=== PATIENT | male | born 1955 | race Caucasian/White ===

== ENCOUNTER 2017-11-07 09:02 | Day surgery (SDC) | payer OTHER ==
[~2017-11-07 09:02] MED LIST: (None)20 M1 PO; ALBU90OI6 INH; AMIT25 PO; ASPI325 PO; ATOR20 PO; CEPH500 PO; CYCL10 PO; DILTIAZEM ER240 MG PO; DOCU100 PO; DOXY100 PO; DULO60 PO; ENOX100I SC; GUAI600T33 PO; HYDACE5 PO; HYDCHL25 PO; HYDR1TAB94 PO; METO50 PO; NAPR500 PO; NICO14TP TOP; NICO7 TOP; NITR100CA PO; RANI150 PO; RIBAVIRIN 200 MG PO; RXTRAM50 PO; SULTRIDS PO; TAMS.4ER PO; TIOT18 IH; TIOT18 INH; TRAM50 PO; VARE1 PO; WARF5 PO; [UNRECOGNIZED DRUG - OTHER]; [UNRECOGNIZED DRUG - OTHER]
[2017-11-07 10:41] LABS: International Normalized Ratio 0.99; Prothrombin Time Results 10.3 Sec (9.7-11.5)
== END 2017-11-07 23:21 | disposition home or self-care (01) ==
LOC: CT 09:02
PROVIDERS: Internal Medicine Critical Care Medicine
PROC: 0PB43ZX Excision of Thoracic Vertebra, Percutaneous Approach, Diagnostic (ICD-10-PCS; principal; 2017-11-07 13:00)
DX: C79.51 Secondary malignant neoplasm of bone (principal); J44.9 Chronic obstructive pulmonary disease, unspecified; Z79.01 Long term (current) use of anticoagulants
CPT/HCPCS: 20225; 36415; 77012; 85610; 88307; 88311; 88341; 88342

== ENCOUNTER 2018-01-06 08:08 | Day surgery (SDC) | payer OTHER ==
[~2018-01-06] VITALS: Ht 185.4 cm; Wt 86.6 kg
[2018-01-06] MEDS ORDERED: WARF7.5 PO (08:50)
[2018-01-06] MEDS ORDERED: TRAM50 PO (08:51)
[2018-01-06] MEDS ORDERED: ESCI10 PO (08:52)
[2018-01-06] MEDS ORDERED: BREO ELLIPTA 11 EACH (08:53)
[2018-01-06 10:37] LABS: International Normalized Ratio 0.99; Prothrombin Time Results 10.2 Sec (9.7-11.5)
== END 2018-01-06 22:41 | disposition home or self-care (01) ==
LOC: ORSCMMR 08:08 → ORD 09:45 → ORSCMMR 09:45
PROVIDERS: Surgery
PROC: 0JH60WZ Insertion of Totally Implantable Vascular Access Device into Chest Subcutaneous Tissue and Fascia, Open Approach (ICD-10-PCS; principal; 2018-01-06 09:45)
DX: C34.12 Malignant neoplasm of upper lobe, left bronchus or lung (principal); C79.51 Secondary malignant neoplasm of bone; J44.9 Chronic obstructive pulmonary disease, unspecified; G47.33 Obstructive sleep apnea (adult) (pediatric); I48.0 Paroxysmal atrial fibrillation; I10 Essential (primary) hypertension; E78.5 Hyperlipidemia, unspecified; F60.2 Antisocial personality disorder; F43.10 Post-traumatic stress disorder, unspecified; F41.9 Anxiety disorder, unspecified; F17.210 Nicotine dependence, cigarettes, uncomplicated; Z79.01 Long term (current) use of anticoagulants; Z79.899 Other long term (current) drug therapy
CPT/HCPCS: 36415; 77001; 85610; C1788; J0690; J1100; J1642; J2250; J2370; J2405; J7120

== ENCOUNTER 2018-02-20 00:19 | Day surgery (SDC) | payer OTHER ==
[~2018-02-20 00:19] MED LIST changes: +ALBU2.5V5 NEB; +ALBU90OI61 INH; +BREO ELLIPTA 11 EACH; +ESCI10 PO; +Flonase 0.05% N16 GM; +LOPE2C; +MULTI VITAMIN1 EACH PO; +PROM25 PO; +WARF7.5 PO
[2018-02-20 10:00] LABS: BASOPHILS ABSOLUTE AUTO 0.02 K/mm3 (0.00-0.23); BASOPHILS PERCENT AUTO 1 % (0-2); EOSINOPHILS ABSOLUTE AUTO 0.02 K/mm3 (0.00-0.68); EOSINOPHILS PERCENT AUTO 1 % (0-6); Hematocrit 34.9 % (37.0-53.0); Hemoglobin 11.9 g/dL (13.5-17.5); IMMATURE GRAN ABSOLUTE AUTO 0.03 K/mm3 (0.00-0.10); IMMATURE GRAN PERCENT AUTO 1 % (0-1); LYMPHOCYTES ABSOLUTE AUTO 0.55 K/mm3 (0.84-5.20); LYMPHOCYTES PERCENT AUTO 24 % (21-46); MONOCYTES PERCENT AUTO 13 % (4-13); Mean Corpuscular HGB 32.5 pg (26.0-34.0); Mean Corpuscular HGB Conc 34.1 g/dL (31.5-36.5); Mean Corpuscular Volume 95 fL (80-100); NEUTROPHILS ABSOLUTE AUTO 1.39 K/mm3 (1.96-9.15); NEUTROPHILS PERCENT AUTO 60 % (41-73); NRBC ABSOLUTE 0.02 K/mm3 (0.00-0.02); NRBC Auto 0.9 /100 WBC (0.0-0.2); Platelet Count 195 K/mm3 (150-400); RDW Coefficient Variation 14.6 % (11.7-14.2); RDW Standard Deviation 49.8 fL (35.1-46.3); Red Blood Cell Count 3.66 M/mm3 (4.30-5.90); White Blood Cell Count 2.31 K/mm3 (4.00-11.30)
[2018-02-20 10:11] LABS: International Normalized Ratio 1.32; Prothrombin Time Results 13.4 Sec (9.7-11.5)
[2018-02-20 10:21] LABS: Alanine Aminotransfer (ALT/SGP 40 U/L (12-78); Albumin/Globulin Ratio 0.7 (0.8-1.8); Alk Phos 117 U/L (50-136); Anion Gap 10 mmol/L (6-16); Aspartate Aminotrans (AST/SGOT 20 U/L (12-37); Bilirubin, Total 0.6 mg/dL (0.1-1.0); Blood Urea Nitrogen 15 mg/dL (8-24); Bun/Creatinine Ratio 20.2 (12.0-20.0); CO2, Blood 25 mmol/L (21-32); Calcium, Blood 8.5 mg/dL (8.5-10.1); Chloride, Blood 104 mmol/L (98-108); Creatinine, Blood 0.74 mg/dL (0.60-1.20); Globulin, Blood 4.4 g/dL (2.2-4.0); Glomerular Filtration Rate >60 (60-); Glucose, Blood 115 mg/dL (70-99); Potassium, Blood 3.7 mmol/L (3.5-5.5); Sodium, Blood 139 mmol/L (136-145); Total Protein, Blood 7.4 g/dL (6.4-8.2)
== END 2018-02-20 09:50 | disposition home or self-care (01) ==
LOC: ATC 00:19
PROVIDERS: Internal Medicine Hematology & Oncology
DX: C34.12 Malignant neoplasm of upper lobe, left bronchus or lung (principal); C79.51 Secondary malignant neoplasm of bone; G47.30 Sleep apnea, unspecified; F17.210 Nicotine dependence, cigarettes, uncomplicated; I10 Essential (primary) hypertension
CPT/HCPCS: 36591; 80053; 85025; 85610; J1642

== ENCOUNTER 2018-03-03 13:54 | Day surgery (SDC) | payer OTHER ==
[2018-03-03 14:37] LABS: Hematocrit 32.1 % (37.0-53.0); Hemoglobin 11.4 g/dL (13.5-17.5); Mean Corpuscular HGB 33.9 pg (26.0-34.0); Mean Corpuscular HGB Conc 35.5 g/dL (31.5-36.5); Mean Corpuscular Volume 96 fL (80-100); Mean Platelet Volume 10.6 fL (9.1-12.4); Platelet Count 191 K/mm3 (150-400); RDW Coefficient Variation 16.4 % (11.7-14.2); RDW Standard Deviation 52.9 fL (35.1-46.3); Red Blood Cell Count 3.36 M/mm3 (4.30-5.90); White Blood Cell Count 2.02 K/mm3 (4.00-11.30)
[2018-03-03 15:09] LABS: BAND PERCENT MAN 2 % (0-8); BASOPHILS ABSOLUTE MAN 0.02 K/mm3 (0.00-0.23); BASOPHILS PERCENT MAN 1 % (0-2); EOSINOPHILS PERCENT MAN 0 % (0-6); LYMPHOCYTES ABSOLUTE MAN 0.42 K/mm3 (0.84-5.20); LYMPHOCYTES PERCENT MAN 21 % (21-46); METAMYELOCYTE ABSOLUTE MAN 0.06 K/mm3 (0.00-0.00); METAMYELOCYTE PERCENT MAN 3 % (0-0); MONOCYTES ABSOLUTE MAN 0.08 K/mm3 (0.16-1.47); MONOCYTES PERCENT MAN 4 % (4-13); MYELOCYTE ABSOLUTE MAN 0.14 K/mm3 (0.00-0.00); MYELOCYTE PERCENT MAN 7 % (0-0); NEUTROPHILS ABSOLUTE MAN 1.27 K/mm3 (1.96-9.15); PLASMA CELL ABSOLUTE MAN 0.02 K/mm3 (0.00-0.00); PLASMA CELLS PERCENT MAN 1 % (0-0); SEG NEUTROPHILS PERCENT MAN 61 % (41-73); TOTAL CELLS COUNTED 100
== END 2018-03-03 14:13 | disposition home or self-care (01) ==
LOC: ATC 13:54
PROVIDERS: Internal Medicine Hematology & Oncology
DX: D70.1 Agranulocytosis secondary to cancer chemotherapy (principal); T45.1X5A Adverse effect of antineoplastic and immunosuppressive drugs, initial encounter; E87.6 Hypokalemia; C34.02 Malignant neoplasm of left main bronchus; C79.51 Secondary malignant neoplasm of bone
CPT/HCPCS: 36591; 85025; J1642

== ENCOUNTER 2018-03-19 08:02 | Day surgery (SDC) | payer OTHER ==
[2018-03-19 09:15] LABS: BASOPHILS ABSOLUTE AUTO 0.03 K/mm3 (0.00-0.23); BASOPHILS PERCENT AUTO 1 % (0-2); EOSINOPHILS ABSOLUTE AUTO 0.09 K/mm3 (0.00-0.68); EOSINOPHILS PERCENT AUTO 2 % (0-6); Hematocrit 27.4 % (37.0-53.0); IMMATURE GRAN ABSOLUTE AUTO 0.02 K/mm3 (0.00-0.10); IMMATURE GRAN PERCENT AUTO 0 % (0-1); LYMPHOCYTES ABSOLUTE AUTO 0.92 K/mm3 (0.84-5.20); LYMPHOCYTES PERCENT AUTO 17 % (21-46); MONOCYTES ABSOLUTE AUTO 0.88 K/mm3 (0.16-1.47); MONOCYTES PERCENT AUTO 16 % (4-13); Mean Corpuscular HGB 33.2 pg (26.0-34.0); Mean Corpuscular HGB Conc 32.8 g/dL (31.5-36.5); Mean Corpuscular Volume 101 fL (80-100); Mean Platelet Volume 9.8 fL (9.1-12.4); NEUTROPHILS ABSOLUTE AUTO 3.59 K/mm3 (1.96-9.15); NEUTROPHILS PERCENT AUTO 65 % (41-73); Platelet Count 219 K/mm3 (150-400); RDW Standard Deviation 70.6 fL (35.1-46.3); Red Blood Cell Count 2.71 M/mm3 (4.30-5.90); White Blood Cell Count 5.53 K/mm3 (4.00-11.30)
[2018-03-19 09:38] LABS: Alanine Aminotransfer (ALT/SGP 18 U/L (12-78); Albumin, Blood 2.5 g/dL (3.4-5.0); Albumin/Globulin Ratio 0.5 (0.8-1.8); Alk Phos 102 U/L (50-136); Anion Gap 10 mmol/L (6-16); Aspartate Aminotrans (AST/SGOT 17 U/L (12-37); Bilirubin, Total 0.4 mg/dL (0.1-1.0); Blood Urea Nitrogen 11 mg/dL (8-24); Bun/Creatinine Ratio 15.4 (12.0-20.0); CO2, Blood 25 mmol/L (21-32); Calcium, Blood 8.2 mg/dL (8.5-10.1); Chloride, Blood 109 mmol/L (98-108); Creatinine, Blood 0.71 mg/dL (0.60-1.20); Globulin, Blood 4.7 g/dL (2.2-4.0); Glomerular Filtration Rate >60 (60-); Glucose, Blood 98 mg/dL (70-99); Potassium, Blood 3.5 mmol/L (3.5-5.5); Sodium, Blood 144 mmol/L (136-145); Total Protein, Blood 7.2 g/dL (6.4-8.2)
[2018-03-19 11:54] LABS: Percent Saturation 29.4 % (20.0-50.0)
== END 2018-03-19 09:05 | disposition home or self-care (01) ==
LOC: ATC 08:02
PROVIDERS: Internal Medicine Hematology & Oncology
DX: D70.1 Agranulocytosis secondary to cancer chemotherapy (principal); C34.12 Malignant neoplasm of upper lobe, left bronchus or lung; E87.6 Hypokalemia; C79.51 Secondary malignant neoplasm of bone; F17.210 Nicotine dependence, cigarettes, uncomplicated
CPT/HCPCS: 36591; 80053; 82728; 83540; 83550; 85025; J1642

== ENCOUNTER 2018-07-02 11:31 | Inpatient (IN) | payer OTHER ==
[~2018-07-02] VITALS: Ht 182.9 cm; Wt 75.6 kg
[2018-07-02 11:56] LABS: PCO2 Arterial 28.2 mmHg (35-45); PO2 Arterial 75.1 mmHg (80-100); pH Blood Arterial 7.49 (7.35-7.45)
[2018-07-02 12:21] LABS: BASOPHILS ABSOLUTE AUTO 0.04 K/mm3 (0.00-0.23); BASOPHILS PERCENT AUTO 1 % (0-2); EOSINOPHILS ABSOLUTE AUTO 0.27 K/mm3 (0.00-0.68); EOSINOPHILS PERCENT AUTO 4 % (0-6); Hematocrit 41.3 % (37.0-53.0); Hemoglobin 13.3 g/dL (13.5-17.5); IMMATURE GRAN ABSOLUTE AUTO 0.02 K/mm3 (0.00-0.10); IMMATURE GRAN PERCENT AUTO 0 % (0-1); LYMPHOCYTES PERCENT AUTO 12 % (21-46); MONOCYTES ABSOLUTE AUTO 0.95 K/mm3 (0.16-1.47); MONOCYTES PERCENT AUTO 13 % (4-13); Mean Corpuscular HGB 31.2 pg (26.0-34.0); Mean Corpuscular HGB Conc 32.2 g/dL (31.5-36.5); Mean Corpuscular Volume 97 fL (80-100); Mean Platelet Volume 9.6 fL (9.1-12.4); NEUTROPHILS ABSOLUTE AUTO 5.05 K/mm3 (1.96-9.15); NEUTROPHILS PERCENT AUTO 70 % (41-73); Platelet Count 322 K/mm3 (150-400); RDW Coefficient Variation 15.3 % (11.7-14.2); Red Blood Cell Count 4.26 M/mm3 (4.30-5.90); White Blood Cell Count 7.23 K/mm3 (4.00-11.30)
[2018-07-02 12:43] LABS: International Normalized Ratio 1.01; Prothrombin Time Results 10.4 Sec (9.7-11.5)
[2018-07-02 12:45] LABS: Alanine Aminotransfer (ALT/SGP 24 U/L (12-78); Albumin, Blood 2.9 g/dL (3.4-5.0); Albumin/Globulin Ratio 0.7 (0.8-1.8); Alk Phos 125 U/L (50-136); Anion Gap 9 mmol/L (6-16); Aspartate Aminotrans (AST/SGOT 15 U/L (12-37); Bilirubin, Total 0.5 mg/dL (0.1-1.0); Blood Urea Nitrogen 17 mg/dL (8-24); Bun/Creatinine Ratio 27.2 (12.0-20.0); CO2, Blood 25 mmol/L (21-32); Calcium, Blood 8.6 mg/dL (8.5-10.1); Chloride, Blood 107 mmol/L (98-108); Creatinine, Blood 0.62 mg/dL (0.60-1.20); Globulin, Blood 4.2 g/dL (2.2-4.0); Glomerular Filtration Rate >60 (60-); Glucose, Blood 92 mg/dL (70-99); Potassium, Blood 3.9 mmol/L (3.5-5.5); Sodium, Blood 141 mmol/L (136-145); Total Protein, Blood 7.1 g/dL (6.4-8.2)
[2018-07-02] MEDS ORDERED: XARELTO20 MG PO (16:15)
--- NOTE | 2018-07-02 18:34 | NUR ---
SHIFT SUMMARY 1500 PT RECEIVED FROM ER. ALERT AND ORIENTED BUT SLOW TO RESPOND. DENIES PAIN AT THIS TIME. LUNG SOUNDS COARSE THROUGHOUT, LEFT BASE INSPIRATORY WHEEZES. AFIB ON TELE RATE 90-110s. FACIAL BURN TO LEFT SIDE OF FACE, SIGNIFICANT SWELLING AND SINGED HAIRS TO LEFT LIP AND HAIRS ALONG WITH ORAL SWELLING, SOME BLISTERING ON LEFT SIDE OF LIPS. MEDIPORT ACCESSED IN ER. WILL CONTINUE TO MONITOR.
--- NOTE | 2018-07-03 04:42 | NUR ---
END OF SHIFT SUMMARY: PATIENT SLEPT MAJORITY OF SHIFT, WOKE EASILY WITH VERBAL CUES. VSS, CALL LIGHT WITHIN REACH, BED LOW AND LOCKED
--- NOTE | 2018-07-03 18:41 | NUR ---
END OF SHIFT PT HAS HAD NO CHANGES TO THE ASSESSMENT, PT HAS HAD NO PAIN THROUGHOUT THE SHIFT, VSS, PT SLEPT THROUGHOUT THE SHIFT
--- NOTE | 2018-07-04 03:10 | NUR ---
END OF SHIFT SUMMARY: PATIENT VSS, NO CHANGES, USING CALL LIGHT APPROPRIATLY, BED LOW AND LOCKED, MONITORING CLOSELY.
--- NOTE | 2018-07-04 16:51 | NUR ---
PT ARRIVED TO ROOM 227 VIA W/C. RESP E/U, LUNGS DIM/COARSE T/O. PT DENIES PAIN. VSS. 2LO2 NC PLACED PER PT BASELINE. PT ORIENTED TO ROOM. CALL LIGHT IN REACH, WILL CONT TO MONITOR.
--- NOTE | 2018-07-04 19:15 | NUR ---
PT HAS HAD NO ACUTE CHANGES SINCE ARRIVING TO FLOOR; VSS. PT DENIED SOB. PT REP PAIN LINDA, DENIED NEED FOR PAIN MEDS. PT RESTING QUIETLY IN BED, IS USING CALL LIGHT FOR ASSISTANCE, REP GIVEN TO JM WEBB.
--- NOTE | 2018-07-05 07:23 | NUR ---
burn, 2L via nc, call light in reach, successfully medicated for pain, mediport accessed with low volumn saline, 2L via nc, sbar report provided to day shift nurse
--- NOTE | 2018-07-05 15:40 | NUR ---
SHIFT SUMMARY PT HAS HAD NO ACUTE CHANGES THIS SHIFT, MEDICATED 1X FOR PAIN, NO OTHER COMPLAINTS OF ANY KIND. PT HAS SLEPT T/O MOST OF SHIFT AND APPEARS TO BE SLEEPING AT THIS TIME, WILL CONT TO MONITOR UNTIL REPORT GIVEN TO JM WEBB.
--- NOTE | 2018-07-05 16:10 | NUR ---
assumed care of pt, pt sleeping in bed, bed in lowest position, bed rails up x 2, call light within reach
--- NOTE | 2018-07-06 08:27 | NUR ---
SUMMARY PT WITH HX OF LALY ALTHOUGH DENIES CPAP USE AND NOT ON O2 AT THIS TIME. DENIES NEED.
--- NOTE | 2018-07-06 16:10 | NUR ---
PTS BP LOW THIS EVENING AROUND 1500. DR OAKES CALLED. 1 500 ML BAG GIVEN. BP DID NOT INCREASE MUCH. DR ORDERED ANOTHER 500ML BAG BOLUS AND FLUIDS @125ML/HR. BP TAKEN EVERY 15 MINUTES. WILL CONTINUE TO MONITOR.
--- NOTE | 2018-07-06 17:56 | NUR ---
PT SLEPT THROUGHOUT THE DAY. C/O PAIN X1, MEDICATED PER EMAR. BP DROPPED THIS EVENING 78/44. DR CALLED. 2 500ML NS BOLUS GIVEN AND PT STARTED ON NS 125ML/HR. BP INCREASED SLIGHTLY....STILL MONITORING.PT STATES NOT DIZZY. PT A&O, TALKING WITH FAMILY. PT ENCOURAGED THROUGHOUT THE DAY TO DRINK WATER BUT DOES NOT. WILL CTM AND ENCOURAGE FLUIDS. WILL CTM BP AND INFORM CALL LIGHT IN REACH
--- NOTE | 2018-07-06 19:25 | NUR ---
ROCEPHIN HELD THIS EVENING DUE TO LOW BP AND BOLUSES NEEDED TO BE GIVEN
[2018-07-07 05:13] LABS: BASOPHILS ABSOLUTE AUTO 0.03 K/mm3 (0.00-0.23); BASOPHILS PERCENT AUTO 1 % (0-2); EOSINOPHILS ABSOLUTE AUTO 0.34 K/mm3 (0.00-0.68); EOSINOPHILS PERCENT AUTO 6 % (0-6); Hematocrit 35.2 % (37.0-53.0); Hemoglobin 11.4 g/dL (13.5-17.5); IMMATURE GRAN ABSOLUTE AUTO 0.02 K/mm3 (0.00-0.10); IMMATURE GRAN PERCENT AUTO 0 % (0-1); LYMPHOCYTES ABSOLUTE AUTO 0.72 K/mm3 (0.84-5.20); LYMPHOCYTES PERCENT AUTO 12 % (21-46); MONOCYTES ABSOLUTE AUTO 0.88 K/mm3 (0.16-1.47); MONOCYTES PERCENT AUTO 15 % (4-13); Mean Corpuscular HGB 31.3 pg (26.0-34.0); Mean Corpuscular HGB Conc 32.4 g/dL (31.5-36.5); Mean Corpuscular Volume 97 fL (80-100); NEUTROPHILS ABSOLUTE AUTO 4.04 K/mm3 (1.96-9.15); NEUTROPHILS PERCENT AUTO 67 % (41-73); Platelet Count 263 K/mm3 (150-400); RDW Coefficient Variation 15.3 % (11.7-14.2); RDW Standard Deviation 54.5 fL (35.1-46.3); Red Blood Cell Count 3.64 M/mm3 (4.30-5.90); White Blood Cell Count 6.03 K/mm3 (4.00-11.30)
[2018-07-07 05:36] LABS: Alanine Aminotransfer (ALT/SGP 15 U/L (12-78); Albumin, Blood 2.6 g/dL (3.4-5.0); Albumin/Globulin Ratio 0.7 (0.8-1.8); Alk Phos 106 U/L (50-136); Anion Gap 6 mmol/L (6-16); Aspartate Aminotrans (AST/SGOT 12 U/L (12-37); Bilirubin, Total 0.6 mg/dL (0.1-1.0); Blood Urea Nitrogen 19 mg/dL (8-24); Bun/Creatinine Ratio 27.1 (12.0-20.0); CO2, Blood 26 mmol/L (21-32); Calcium, Blood 8.2 mg/dL (8.5-10.1); Chloride, Blood 108 mmol/L (98-108); Globulin, Blood 3.7 g/dL (2.2-4.0); Glomerular Filtration Rate >60 (60-); Glucose, Blood 88 mg/dL (70-99); Potassium, Blood 3.8 mmol/L (3.5-5.5); Sodium, Blood 140 mmol/L (136-145); Total Protein, Blood 6.3 g/dL (6.4-8.2)
--- NOTE | 2018-07-07 07:29 | NUR ---
SUMMARY MEDICATED FOR PAIN TONIGHT. TOLERATING 02.SLEPT OFF AND ON.
--- NOTE | 2018-07-07 16:24 | NUR ---
BP STABLE TODAY. MORNING BP MEDS HELD DUE TO LOW BP, CURRENTLY WNL. NO C/O PAIN AT THIS TIME. O2 @ 2L. FORGETFUL @ TIMES OF SURROUNDINGS, BED ALARM ON. INDEP. W/ CANE.
[2018-07-08 04:45] LABS: BASOPHILS ABSOLUTE AUTO 0.04 K/mm3 (0.00-0.23); BASOPHILS PERCENT AUTO 1 % (0-2); EOSINOPHILS ABSOLUTE AUTO 0.36 K/mm3 (0.00-0.68); EOSINOPHILS PERCENT AUTO 5 % (0-6); Hematocrit 36.4 % (37.0-53.0); IMMATURE GRAN ABSOLUTE AUTO 0.02 K/mm3 (0.00-0.10); IMMATURE GRAN PERCENT AUTO 0 % (0-1); LYMPHOCYTES ABSOLUTE AUTO 0.65 K/mm3 (0.84-5.20); LYMPHOCYTES PERCENT AUTO 9 % (21-46); MONOCYTES ABSOLUTE AUTO 1.03 K/mm3 (0.16-1.47); MONOCYTES PERCENT AUTO 14 % (4-13); Mean Corpuscular HGB 31.1 pg (26.0-34.0); Mean Platelet Volume 9.5 fL (9.1-12.4); NEUTROPHILS ABSOLUTE AUTO 5.13 K/mm3 (1.96-9.15); NEUTROPHILS PERCENT AUTO 71 % (41-73); Platelet Count 265 K/mm3 (150-400); RDW Coefficient Variation 15.1 % (11.7-14.2); Red Blood Cell Count 3.86 M/mm3 (4.30-5.90); White Blood Cell Count 7.23 K/mm3 (4.00-11.30)
[2018-07-08 05:00] LABS: Mean Corpuscular Volume 94 fL (80-100)
[2018-07-08 05:01] LABS: Anion Gap 6 mmol/L (6-16); Blood Urea Nitrogen 13 mg/dL (8-24); Bun/Creatinine Ratio 19.4 (12.0-20.0); CO2, Blood 26 mmol/L (21-32); Calcium, Blood 8.4 mg/dL (8.5-10.1); Chloride, Blood 107 mmol/L (98-108); Creatinine, Blood 0.67 mg/dL (0.60-1.20); Glomerular Filtration Rate >60 (60-); Glucose, Blood 86 mg/dL (70-99); Potassium, Blood 3.9 mmol/L (3.5-5.5); Sodium, Blood 139 mmol/L (136-145)
--- NOTE | 2018-07-08 07:37 | NUR ---
LYING ON RIGHT SIDE WITH EYES CLOSED WHILE TV IS ON IN ROOM. NO CHANGES SINCE START OF SHIFT. PAIN WELL MANAGED WITH PRN PAIN MEDS PER MD ORDERS. PT RESTED WELL THIS SHIFT. DENIES FURHTER NEEDS AT THIS TIME. SAFETY MEASURES IN PLACE. WILL GIVE HAND OFF TO ONCOMING SHIFT USING SBAR DURING BEDSIDE REPORT.
--- NOTE | 2018-07-08 08:00 | NUR ---
PT PLEASANT SOMEWHAT FLAT EFFECT. CONCRETE . FACE NOT PAINFUL. H/R IRREG, NO MURMER NOTED. NO TELE. LUNGS CLEAR AFTER COUGH. NOT USING N/C AT THIS TIME. RESP EASY. UNLABORED. ON R,A. BT XR LAST BM YEST PER PT. VOIDS PER URINAL INDEPENDANT IN ROOM. BED IN LOW POSITION, CALL LITE IN REACH CALLS APPROP
--- NOTE | 2018-07-08 17:22 | NUR ---
PT TAKING BACTROBAN AND SILVER SULVADINE. NATASHA ANTHONY BACTROBAN PER DR OAKES
--- NOTE | 2018-07-08 18:52 | NUR ---
PT PLEASANT TODAY, DID TALK MORE TODAY. SOME JOKES. DENIES PAIN TODAY. STATES THINKS READY TO GO HOME. WATCHING TV AND SLEEPING T/O DAY. NO OTHER CONCERNS AT THIS TIME. BED IN LOW POSITION, CALLS APPROP
--- NOTE | 2018-07-09 05:50 | NUR ---
SUMMARY: NO CHANGE TONIGHT. PT SLEPT WELL, VSS. MEDICATED FOR PAIN X1. HAS DENIED SOB, CHEST PAIN. MEDIPORT WNL, AND INFUSING. PT INDEPENDENT, NO ACUTE CONCERNS AT THIS TIME.
[2018-07-09] MEDS ORDERED: METO25 PO (11:35)
[2018-07-09] MEDS ORDERED: ALBU2.5V5 NEB (11:39)
[2018-07-09] MEDS ORDERED: Silvadene20 GM TOP (11:44)
[2018-07-09] MEDS ORDERED: AZIT500 PO (11:51)
[2018-07-09] MEDS ORDERED: CEPH500 PO (11:52)
--- NOTE | 2018-07-09 12:55 | NUR ---
SHIFT SUMMARY PT A&OX4, VSS, LEFT FLOOR VIA WC WITH SLPS TO GO HOME WITH , WITH ALL PERSONAL POSSESSIONS INCLUDING DC PACKET. DC INSTRUCTIONS GIVEN. PT REP UNDERSTANDING THOSE INSTRUCTIONS INCLUDING FW WITH PCP IN 1 WK, SCRIPTS AT [facility], INFECTION S/SX AND TIPS ON INFECTION PREVENTION. DEACCESSED MEDIPORT.
== END 2018-07-09 12:42 | disposition home or self-care (01) | DRG 935 ==
LOC: ER 11:31 → PCU 14:31 → SURS 07-04 16:48
PROVIDERS: Internal Medicine; ADMIT Internal Medicine
DX: T20.22XA Burn of second degree of lip(s), initial encounter (principal); J96.21 Acute and chronic respiratory failure with hypoxia; C34.90 Malignant neoplasm of unspecified part of unspecified bronchus or lung; Z99.81 Dependence on supplemental oxygen; I95.9 Hypotension, unspecified; I48.2 Chronic atrial fibrillation; T20.26XA Burn of second degree of forehead and cheek, initial encounter; F17.210 Nicotine dependence, cigarettes, uncomplicated; J44.9 Chronic obstructive pulmonary disease, unspecified; W40.8XXA Explosion of other specified explosive materials, initial encounter; Y93.89 Activity, other specified; Y92.9 Unspecified place or not applicable; Z79.899 Other long term (current) drug therapy; G47.33 Obstructive sleep apnea (adult) (pediatric); Z88.8 Allergy status to other drugs, medicaments and biological substances; Z79.01 Long term (current) use of anticoagulants; Z86.19 Personal history of other infectious and parasitic diseases; Z86.14 Personal history of Methicillin resistant Staphylococcus aureus infection; Z90.79 Acquired absence of other genital organ(s); Z95.828 Presence of other vascular implants and grafts
CPT/HCPCS: 16020; 36600; 71045; 80048; 80053; 82375; 82803; 85025; 85610; 87081; 92610; 93005; 93010; 94640; 94760; 94762; 96365; 96367; 96375; 99285-25; C9113; G8996; G8997; G8998; J0456; J0696; J1170; J1642; J1650; J1885; J2405; J7030; J7040; J7050; J7626

== ENCOUNTER 2018-08-06 00:14 | Day surgery (SDC) | payer OTHER ==
[~2018-08-06 00:14] MED LIST changes: +AZIT500 PO; +METO25 PO; +Silvadene20 GM TOP; +XARELTO20 MG PO
[2018-08-06 10:20] LABS: BASOPHILS ABSOLUTE AUTO 0.04 K/mm3 (0.00-0.23); BASOPHILS PERCENT AUTO 1 % (0-2); EOSINOPHILS ABSOLUTE AUTO 0.29 K/mm3 (0.00-0.68); EOSINOPHILS PERCENT AUTO 5 % (0-6); Hematocrit 38.1 % (37.0-53.0); Hemoglobin 12.5 g/dL (13.5-17.5); IMMATURE GRAN ABSOLUTE AUTO 0.01 K/mm3 (0.00-0.10); IMMATURE GRAN PERCENT AUTO 0 % (0-1); LYMPHOCYTES ABSOLUTE AUTO 0.76 K/mm3 (0.84-5.20); LYMPHOCYTES PERCENT AUTO 13 % (21-46); MONOCYTES ABSOLUTE AUTO 0.77 K/mm3 (0.16-1.47); MONOCYTES PERCENT AUTO 14 % (4-13); Mean Corpuscular HGB 32.3 pg (26.0-34.0); Mean Corpuscular HGB Conc 32.8 g/dL (31.5-36.5); Mean Corpuscular Volume 98 fL (80-100); Mean Platelet Volume 9.6 fL (9.1-12.4); NEUTROPHILS ABSOLUTE AUTO 3.82 K/mm3 (1.96-9.15); NEUTROPHILS PERCENT AUTO 67 % (41-73); Platelet Count 306 K/mm3 (150-400); RDW Coefficient Variation 18.1 % (11.7-14.2); RDW Standard Deviation 65.8 fL (35.1-46.3); Red Blood Cell Count 3.87 M/mm3 (4.30-5.90); White Blood Cell Count 5.69 K/mm3 (4.00-11.30)
[2018-08-06 10:42] LABS: Alanine Aminotransfer (ALT/SGP 19 U/L (12-78); Albumin, Blood 3.3 g/dL (3.4-5.0); Albumin/Globulin Ratio 0.8 (0.8-1.8); Alk Phos 115 U/L (50-136); Anion Gap 7 mmol/L (6-16); Aspartate Aminotrans (AST/SGOT 17 U/L (12-37); Bilirubin, Total 0.4 mg/dL (0.1-1.0); Blood Urea Nitrogen 19 mg/dL (8-24); Bun/Creatinine Ratio 24.1 (12.0-20.0); CO2, Blood 27 mmol/L (21-32); Calcium, Blood 8.8 mg/dL (8.5-10.1); Chloride, Blood 105 mmol/L (98-108); Creatinine, Blood 0.79 mg/dL (0.60-1.20); Globulin, Blood 3.9 g/dL (2.2-4.0); Glomerular Filtration Rate >60 (60-); Glucose, Blood 88 mg/dL (70-99); Potassium, Blood 3.8 mmol/L (3.5-5.5); Sodium, Blood 139 mmol/L (136-145); Total Protein, Blood 7.2 g/dL (6.4-8.2)
== END 2018-08-06 10:04 | disposition home or self-care (01) ==
LOC: ATC 00:14
PROVIDERS: Internal Medicine Hematology & Oncology
DX: C34.12 Malignant neoplasm of upper lobe, left bronchus or lung (principal); C79.51 Secondary malignant neoplasm of bone; D64.81 Anemia due to antineoplastic chemotherapy; F17.200 Nicotine dependence, unspecified, uncomplicated; Z79.01 Long term (current) use of anticoagulants; Z79.899 Other long term (current) drug therapy
CPT/HCPCS: 36591; 80053; 85025; J1642

== ENCOUNTER 2018-11-03 13:52 | Day surgery (SDC) | payer OTHER ==
[2018-11-03 16:06] LABS: BASOPHILS ABSOLUTE AUTO 0.04 K/mm3 (0.00-0.23); BASOPHILS PERCENT AUTO 1 % (0-2); EOSINOPHILS ABSOLUTE AUTO 0.39 K/mm3 (0.00-0.68); EOSINOPHILS PERCENT AUTO 6 % (0-6); Hematocrit 43.2 % (37.0-53.0); Hemoglobin 13.8 g/dL (13.5-17.5); IMMATURE GRAN ABSOLUTE AUTO 0.03 K/mm3 (0.00-0.10); IMMATURE GRAN PERCENT AUTO 0 % (0-1); LYMPHOCYTES ABSOLUTE AUTO 1.15 K/mm3 (0.84-5.20); LYMPHOCYTES PERCENT AUTO 17 % (21-46); MONOCYTES ABSOLUTE AUTO 0.86 K/mm3 (0.16-1.47); MONOCYTES PERCENT AUTO 12 % (4-13); Mean Corpuscular HGB 31.8 pg (26.0-34.0); Mean Corpuscular HGB Conc 31.9 g/dL (31.5-36.5); Mean Corpuscular Volume 100 fL (80-100); Mean Platelet Volume 9.7 fL (9.1-12.4); NEUTROPHILS ABSOLUTE AUTO 4.45 K/mm3 (1.96-9.15); NEUTROPHILS PERCENT AUTO 64 % (41-73); Platelet Count 326 K/mm3 (150-400); RDW Standard Deviation 55.2 fL (35.1-46.3); Red Blood Cell Count 4.34 M/mm3 (4.30-5.90); White Blood Cell Count 6.92 K/mm3 (4.00-11.30)
[2018-11-03 16:23] LABS: Alanine Aminotransfer (ALT/SGP 18 U/L (12-78); Albumin, Blood 3.1 g/dL (3.4-5.0); Albumin/Globulin Ratio 0.8 (0.8-1.8); Alk Phos 133 U/L (50-136); Anion Gap 6 mmol/L (6-16); Aspartate Aminotrans (AST/SGOT 8 U/L (12-37); Bilirubin, Total 0.2 mg/dL (0.1-1.0); Blood Urea Nitrogen 18 mg/dL (8-24); Bun/Creatinine Ratio 23.8 (12.0-20.0); CO2, Blood 25 mmol/L (21-32); Calcium, Blood 8.5 mg/dL (8.5-10.1); Chloride, Blood 113 mmol/L (98-108); Creatinine, Blood 0.76 mg/dL (0.60-1.20); Globulin, Blood 4.1 g/dL (2.2-4.0); Glomerular Filtration Rate >60 (60-); Glucose, Blood 106 mg/dL (70-99); Potassium, Blood 3.7 mmol/L (3.5-5.5); Sodium, Blood 144 mmol/L (136-145); Total Protein, Blood 7.2 g/dL (6.4-8.2)
== END 2018-11-03 15:45 | disposition home or self-care (01) ==
LOC: ATC 13:52
PROVIDERS: Internal Medicine Hematology & Oncology
DX: C34.12 Malignant neoplasm of upper lobe, left bronchus or lung (principal); C79.51 Secondary malignant neoplasm of bone; C79.52 Secondary malignant neoplasm of bone marrow; I48.0 Paroxysmal atrial fibrillation; J44.9 Chronic obstructive pulmonary disease, unspecified; D63.1 Anemia in chronic kidney disease; G47.33 Obstructive sleep apnea (adult) (pediatric); K21.9 Gastro-esophageal reflux disease without esophagitis; F43.10 Post-traumatic stress disorder, unspecified; F41.9 Anxiety disorder, unspecified; F17.200 Nicotine dependence, unspecified, uncomplicated; Z79.899 Other long term (current) drug therapy; Z79.01 Long term (current) use of anticoagulants; Z88.8 Allergy status to other drugs, medicaments and biological substances
CPT/HCPCS: 36591; 36593; 80053; 85025; J1642; J2997

== ENCOUNTER 2019-02-02 00:04 | Day surgery (SDC) | payer OTHER ==
[2019-02-02 14:37] LABS: BASOPHILS ABSOLUTE AUTO 0.02 K/mm3 (0.00-0.23); BASOPHILS PERCENT AUTO 0 % (0-2); EOSINOPHILS ABSOLUTE AUTO 0.06 K/mm3 (0.00-0.68); EOSINOPHILS PERCENT AUTO 1 % (0-6); Hematocrit 45.8 % (37.0-53.0); Hemoglobin 15.4 g/dL (13.5-17.5); IMMATURE GRAN ABSOLUTE AUTO 0.04 K/mm3 (0.00-0.10); IMMATURE GRAN PERCENT AUTO 0 % (0-1); LYMPHOCYTES ABSOLUTE AUTO 0.84 K/mm3 (0.84-5.20); LYMPHOCYTES PERCENT AUTO 9 % (21-46); MONOCYTES ABSOLUTE AUTO 1.05 K/mm3 (0.16-1.47); MONOCYTES PERCENT AUTO 11 % (4-13); Mean Corpuscular HGB 32.4 pg (26.0-34.0); Mean Corpuscular HGB Conc 33.6 g/dL (31.5-36.5); Mean Corpuscular Volume 96 fL (80-100); Mean Platelet Volume 9.6 fL (9.1-12.4); NEUTROPHILS ABSOLUTE AUTO 7.73 K/mm3 (1.96-9.15); NEUTROPHILS PERCENT AUTO 79 % (41-73); Platelet Count 315 K/mm3 (150-400); RDW Coefficient Variation 13.8 % (11.7-14.2); RDW Standard Deviation 49.1 fL (35.1-46.3); Red Blood Cell Count 4.76 M/mm3 (4.30-5.90); White Blood Cell Count 9.74 K/mm3 (4.00-11.30)
[2019-02-02 14:59] LABS: Alanine Aminotransfer (ALT/SGP 15 U/L (12-78); Albumin, Blood 3.4 g/dL (3.4-5.0); Albumin/Globulin Ratio 0.9 (0.8-1.8); Alk Phos 132 U/L (50-136); Anion Gap 8 mmol/L (6-16); Aspartate Aminotrans (AST/SGOT 8 U/L (12-37); Bilirubin, Total 0.5 mg/dL (0.1-1.0); Blood Urea Nitrogen 27 mg/dL (8-24); Bun/Creatinine Ratio 30.1 (12.0-20.0); CO2, Blood 26 mmol/L (21-32); Calcium, Blood 8.9 mg/dL (8.5-10.1); Chloride, Blood 105 mmol/L (98-108); Globulin, Blood 3.8 g/dL (2.2-4.0); Glomerular Filtration Rate >60 (60-); Glucose, Blood 112 mg/dL (70-99); Potassium, Blood 3.1 mmol/L (3.5-5.5); Sodium, Blood 139 mmol/L (136-145); Total Protein, Blood 7.2 g/dL (6.4-8.2)
== END 2019-02-02 14:15 | disposition home or self-care (01) ==
LOC: ATC 00:04
PROVIDERS: Internal Medicine Hematology & Oncology
DX: C34.12 Malignant neoplasm of upper lobe, left bronchus or lung (principal); C79.51 Secondary malignant neoplasm of bone; I10 Essential (primary) hypertension; I48.0 Paroxysmal atrial fibrillation; J44.9 Chronic obstructive pulmonary disease, unspecified; D64.9 Anemia, unspecified; G47.33 Obstructive sleep apnea (adult) (pediatric); E78.5 Hyperlipidemia, unspecified; K21.9 Gastro-esophageal reflux disease without esophagitis; F41.9 Anxiety disorder, unspecified; Z86.73 Personal history of transient ischemic attack (TIA), and cerebral infarction without residual deficits; Z88.8 Allergy status to other drugs, medicaments and biological substances; Z79.899 Other long term (current) drug therapy; Z79.01 Long term (current) use of anticoagulants; Z87.891 Personal history of nicotine dependence
CPT/HCPCS: 36591; 80053; 85025; J1642

== ENCOUNTER 2019-02-25 12:22 | Inpatient (IN) | payer OTHER ==
[~2019-02-25] VITALS: Ht 188 cm; Wt 77.8 kg
[2019-02-25 15:56] LABS: BASOPHILS ABSOLUTE AUTO 0.01 K/mm3 (0.00-0.23); BASOPHILS PERCENT AUTO 0 % (0-2); EOSINOPHILS PERCENT AUTO 0 % (0-6); Hematocrit 41.3 % (37.0-53.0); IMMATURE GRAN ABSOLUTE AUTO 0.05 K/mm3 (0.00-0.10); IMMATURE GRAN PERCENT AUTO 0 % (0-1); LYMPHOCYTES ABSOLUTE AUTO 0.41 K/mm3 (0.84-5.20); LYMPHOCYTES PERCENT AUTO 4 % (21-46); MONOCYTES ABSOLUTE AUTO 0.71 K/mm3 (0.16-1.47); MONOCYTES PERCENT AUTO 6 % (4-13); Mean Corpuscular HGB 32.9 pg (26.0-34.0); Mean Corpuscular HGB Conc 33.9 g/dL (31.5-36.5); Mean Corpuscular Volume 97 fL (80-100); Mean Platelet Volume 9.5 fL (9.1-12.4); NEUTROPHILS ABSOLUTE AUTO 10.48 K/mm3 (1.96-9.15); NEUTROPHILS PERCENT AUTO 90 % (41-73); Platelet Count 297 K/mm3 (150-400); RDW Coefficient Variation 13.5 % (11.7-14.2); RDW Standard Deviation 48.9 fL (35.1-46.3); Red Blood Cell Count 4.25 M/mm3 (4.30-5.90); White Blood Cell Count 11.66 K/mm3 (4.00-11.30)
[2019-02-25 16:19] LABS: Alanine Aminotransfer (ALT/SGP 25 U/L (12-78); Albumin, Blood 3.2 g/dL (3.4-5.0); Albumin/Globulin Ratio 0.8 (0.8-1.8); Alk Phos 130 U/L (50-136); Anion Gap 8 mmol/L (6-16); Aspartate Aminotrans (AST/SGOT 15 U/L (12-37); Bilirubin, Total 0.5 mg/dL (0.1-1.0); Blood Urea Nitrogen 34 mg/dL (8-24); Bun/Creatinine Ratio 28.1 (12.0-20.0); CO2, Blood 24 mmol/L (21-32); Chloride, Blood 106 mmol/L (98-108); Creatinine, Blood 1.21 mg/dL (0.60-1.20); Globulin, Blood 3.9 g/dL (2.2-4.0); Glomerular Filtration Rate >60 (60-); Glucose, Blood 146 mg/dL (70-99); Potassium, Blood 3.8 mmol/L (3.5-5.5); Sodium, Blood 138 mmol/L (136-145); Total Protein, Blood 7.1 g/dL (6.4-8.2)
--- NOTE | 2019-02-25 17:40 | NUR ---
PT HERE FROM ER VIA [employer] FOR R HIP FX. PT MOVED TO BED WITH MULT ASSIST. PT REPORTS HX OF LUNG CA AND WEARS 3L OXYGEN AT HOME. PT PPX4. WIGGLES TOES. PT SPEECH DIFFICULT TO UNDERSTAND AT TIMES. PT HAS NO SORES TO BOTTOM OR HEELS.
--- NOTE | 2019-02-25 19:23 | NUR ---
REPORT BEEN GIVEN TO HS RN. PT BEEN ASSISTED WITH ADL'S PRN. PT HAS DNR BRACELET IN PLACE AFTER VERIFYING WITH PT AND OTHER RN. PT BEEN RESTING QUIETLY WHEN NOT DISTURBED. PT HAS MEDIPORT THAT IS ACCESSED, IVF STARTED WITHOUT DIFFICULTY.
--- NOTE | 2019-02-26 00:02 | NUR ---
PATIENT HAS A DIFFICULT TIME FORMING WORDS, PATIENT HAS NO TEETH, AND MUMBLES WHILE SPEAKING. HE IS HOWEVER ORIENTED TO SELF, SITUATION, PLACE, AND PLAN. hIS DAUGHTER WILL BE SPENDING THE NIGHT.
--- NOTE | 2019-02-26 04:44 | NUR ---
PATIENT SLEPT FOR 3-4 HOURS AT A TIME. NPO AFTER MIDNIGHT. PATIENT HAS NOT KEPT HIS 02 ON OVERNIGHT, HIS LUNGS CONTINUE TO HAVE CRACKLES T/O, WITH A WEAK NONPRODUCTIVE COUGH. AM LABS FROM THE METAPORT. CALL LIGHT IN REACH.
[2019-02-26 05:04] LABS: BASOPHILS ABSOLUTE AUTO 0.02 K/mm3 (0.00-0.23); BASOPHILS PERCENT AUTO 0 % (0-2); EOSINOPHILS ABSOLUTE AUTO 0.03 K/mm3 (0.00-0.68); EOSINOPHILS PERCENT AUTO 0 % (0-6); Hematocrit 41.9 % (37.0-53.0); IMMATURE GRAN ABSOLUTE AUTO 0.03 K/mm3 (0.00-0.10); IMMATURE GRAN PERCENT AUTO 0 % (0-1); LYMPHOCYTES ABSOLUTE AUTO 0.58 K/mm3 (0.84-5.20); LYMPHOCYTES PERCENT AUTO 6 % (21-46); MONOCYTES PERCENT AUTO 10 % (4-13); Mean Corpuscular HGB 32.6 pg (26.0-34.0); Mean Corpuscular HGB Conc 33.4 g/dL (31.5-36.5); Mean Corpuscular Volume 97 fL (80-100); Mean Platelet Volume 9.3 fL (9.1-12.4); NEUTROPHILS ABSOLUTE AUTO 8.41 K/mm3 (1.96-9.15); NEUTROPHILS PERCENT AUTO 84 % (41-73); Platelet Count 278 K/mm3 (150-400); RDW Coefficient Variation 13.5 % (11.7-14.2); RDW Standard Deviation 48.4 fL (35.1-46.3); White Blood Cell Count 10.07 K/mm3 (4.00-11.30)
[2019-02-26 05:33] LABS: Anion Gap 10 mmol/L (6-16); Blood Urea Nitrogen 33 mg/dL (8-24); CO2, Blood 25 mmol/L (21-32); Calcium, Blood 8.8 mg/dL (8.5-10.1); Chloride, Blood 106 mmol/L (98-108); Creatinine, Blood 0.83 mg/dL (0.60-1.20); Glomerular Filtration Rate >60 (60-); Glucose, Blood 115 mg/dL (70-99); Potassium, Blood 3.7 mmol/L (3.5-5.5); Sodium, Blood 141 mmol/L (136-145)
--- NOTE | 2019-02-26 08:33 | NUR ---
LOW O2 SATURATION AT APROX 0807 I WAS NOTIFIED BY ICT TRAINER THAT PTS O2 SAT WERE 78% ON 4L O2 NC. UPON ENTERING ROOM PTS O2 SAT READING AT 81% ON 10L NC WITH RT IN ROOM ADMINISTERING BREATHING TX-FINGER PROBE IN PLACE. RT STATES THAT IS DOES NOT APPEAR THAT WE ARE GETTING A GOOD WAVEFORM AND THAT PRIMARY RN REQUESTING EAR PROBE. PT APPEARS SLEEPY, DIFFICULT TO AROUSE, UNABLE TO ANSWER QUESTIONS TO WHY HE IS HERE/WHERE HE IS. FAMILY AT BEDSIDE, STATE THAT HE IS DECREASED LOC FROM BASELINE. EAR PROBE APPLIED BY MYSELF AT APROX 0812 WELL AN OXIMIZER. O2 SAT 85-88% ON 10L BY EAR PROBE. DR NEVAREZ NOTIFIED AT APROX 0825, ORDER OBTAINED FOR STAT ABG AND CHEST XRAY. AT 0843 CRITICAL O2 VALUE OF 42.1, DR NEVAREZ NOTIFIED AND STATUS CHANGE TO PCU, AT 0845 PT GIVEN 0.2MG NARCAN DUE TO OVER-SEDATION OF NARCOTICS PER DR NEVAREZ. NON-REBREATHER APPLIED AT 0850 AND NURSING FINISHING TUNNEL OPERATOR NOTIFIED. PT WILL BE TRANSFERED TO ICU 2. AT 0850 PT ALERT, INTERACTING WITH FAMILY AND ANSWERING QUESTIONS APPROPRIATLY FOR RN. PRIMARY RN ABDULAZIZ JOHNSTON TO GIVE REPORT TO ICU.
[2019-02-26 08:41] LABS: PCO2 Arterial 33.4 mmHg (35-45); PO2 Arterial 42.1 mmHg (80-100); pH Blood Arterial 7.46 (7.35-7.45)
--- NOTE | 2019-02-26 08:52 | NUR ---
TRANSFER TO ICU PT'S SATS WITH MORNING VS WERE IN THE 70S ON 2L. PT MORE LETHARGIC, NOT ABLE TO STAY AWAKE TO TALK TO STAFF INCREASED OXYGEN TO 10L VIA OXYMASK, SATS INCREASED TO UPPER 80S/LOW 90S. TALKED TO DR NEVAREZ, STAT ABG AND CXR ORDERED. NARCAN GIVEN, PT BECAME MORE ALERT AND ORIENTED. CRITICAL ABG RESULTS RETURNED, TRANSFER PER DR NEVAREZ. FAMILY AT BEDSIDE UPDATED AND QUESTIONS ANSWERED.
--- NOTE | 2019-02-26 09:30 | NUR ---
INITIAL ASSESSMENT PATIENT ARRIVED TO UNIT AT 0914 FROM SURGICAL FLOOR. PATIENT ALERT AND ORIENTED X 4, AFEBRILE. PATIENT ANXIOUS AT TIMES AND NEEDS SUPPORT AND COACHING TO SLOW DOWN BREATHING WHEN BECOMES ANXIOUS. SPEECH GARBLED. SON STATES THAT PATIENT'S MENTATION AND SPEECH IS NORMAL FOR HIM. 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 PATIENT COMPLAINS OF PAIN IN R HIP WITH REPOSITIONING IS FRACTURED. PATIENT ON 10 L OXYMIZER. BREATH SOUNDS ARE COARSE AND WHEEZY T/O. PATIENT DESATS QUICKLY. PATIENT HAS VERY MOIST COUGH. PATIENT STATES HE OCCASIONALLY COUGHS UP THICK SPUTUM THAT IS VARIED IN COLOR. PATIENT IN A.FIB, HR 90S TO LOW 100S. BP STABLE. BLE PULSES 1+. GI WNL. LAST BM ON THE . PATIENT USING BEDSIDE URINAL. URINE RYLEY COLORED WITH SEDIMENT NOTED. TOES DUSKY. DARK, DRY PATCHES OF SKIN TO BLES. SCAB TO R FA. NSKCL INFUSING AT 75 MLS/ HOUR. BED LOW, CALL LIGHT IN REACH. PATIENT ORIENTED TO UNIT, ROOM AND CALL SYSTEM. WILL CONTINUE TO MONITOR FREQUENTLY THROUGHOUT SHIFT.
--- NOTE | 2019-02-26 09:33 | NUR ---
CODY CORTEZ RN CALLED DIRECTOR WORK AND STATED THAT SHE ADMINISTERED 1MG DILAUDID AT APROX 0630.
--- NOTE | 2019-02-26 11:30 | NUR ---
UPDATED PATIENT'S LIFE PARTNER ON PATIENT STATUS.
--- NOTE | 2019-02-26 12:05 | NUR ---
SPOKE WITH DR. NEVAREZ. INFORMED THAT PATIENT HAD BEEN TITRATED DOWN FROM OXYMIZER TO 4 L NC AND HAD BEEN SATTING 90% AND ABOVE AND THEN PATIENT'S OXYGEN DROPPED INTO THE 70S. INFORMED THAT PATIENT LUNGS ARE CRACKLY AND SOUND WET. INFORMED THAT PATIENT HAS POSITIVE FLUID BALANCE FROM ADMIT. INFORMED THAT FLUSH ON OXYMIZER. ORDERS RECEIVED.
--- NOTE | 2019-02-26 16:00 | NUR ---
PATIENT WATCHING TV IN BED. AFEBRILE. VITAL SIGNS STABLE. PATIENT SATTING 90% AND GREATER ON OXYMIZER RANGING FROM 6 L TO 15 L. PATIENT VERY DSYPNEIC WITH EXERTION. PATIENT CAN DESAT QUICKLY AND DOWN TO 70S WHEN TAKES O2 OFF. NO OTHER ACUTE CHANGES TO NOTE ON AT THIS TIME. WILL CONTINUE TO MONITOR.
--- NOTE | 2019-02-26 19:00 | NUR ---
ASSUMED CARE ASSUMED CARE OF PT. AWAKE AND ALERT. VISITING WITH FAMILY. SPEECH IS GARBLED. ANSWERS QUESTIONS APPROPRIATELY. CONTINUES TO C/O RIGHT HIP PAIN. ALSO C/O NUMBNESS TO RIGHT FOOT. WIGGLES TOES. BILATERAL LEs ARE PALE AND SLIGHTLY COOL. PULSES PALPABLE. KNEE-HIGH SOUMYA HOSE IN PLACE. MONITOR SHOWS AFIB, RATE 90s. BP STABLE. OXYMIZER @ 10L. RESPIRATIONS SLIGHTLY TACHYPNEIC AT TIMES. MOIST COUGH NOTED- PT OCCASIONALLY SWALLOWS SPUTUM. MEDIPORT TO RIGHT CHEST WITH NS TKO. SEE SHIFT ASSESSMENT FOR FULL ASSESSMENT.
--- NOTE | 2019-02-26 19:40 | NUR ---
SHIFT SUMMARY PATIENT REMAINED ALERT AND ORIENTED, AFEBRILE. PATIENT ANXIOUS ON AND OFF T/O SHIFT. ANXIETY MOSTLY AFTER EXERTION AND PATIENT BECOMING SOB. PATIENT CONTINUES TO HAVE GARBLED SPEECH. SON STATES THAT PATIENT'S MENTATION AND SPEECH IS NORMAL FOR HIM. PATIENT COMPLAINED OF R HIP PAIN WITH REPOSITIONING. NO PAIN WHEN LYING STILL. PATIENT ASSISTED WITH REPOSITIONING. PATIENT SATTED 90% AND GREATER ON 4 L NC TO 15 L OXYMIZER. PATIENT WOULD OCCASIONALLY TAKE O2 OFF AND DESAT QUICKLY INTO THE 70S. LUNGS COARSE AND WHEEZY. COUGH MOIST AND PRODUCTIVE. PATIENT GIVEN 40 MG IV LASIX THIS SHIFT. PATIENT REMAINED IN A. FIB. HR 70S TO LOW 100S. BP REMAINED STABLE. TOES REMAINED CYANOTIC WITH 1+ PULSES. GI WNL. NO BM THIS SHIFT. PATIENT HAD GOOD APPETITE AND TOLERATED DIET WELL. PATIENT VOIDED RYLEY COLORED URINE WITH SEDIMENT NOTED INTO BEDSIDE URINAL. NS TKO. PATIENT TO BE NPO AT MIDNIGHT FOR SCHEDULED HIP SURGERY TOMORROW. PATIENT HAS NO COMPLAINTS AT THIS TIME. BED LOW, CALL LIGHT IN REACH. REPORT HAS BEEN GIVEN TO ASSUMING SENIOR ECOLOGIST NURSE.
--- NOTE | 2019-02-26 21:45 | NUR ---
O2 REQUIREMENTS/CALL TO MD O2 SATS DECREASED TO 84-85%- OXYMIZER NOW AT 15L. PT IS AWAKE AND ALERT. C/O FEELING MILDLY SHORT OF BREATH. LUNGS COARSE WITH EXPIRATORY WHEEZES. OCCASIONAL MOIST COUGH. TALKED WITH PT REGARDING POSSIBLE USE OF BIPAP/CPAP, BUT PT REFUSES, STATING THAT HE'S TRIED IT BEFORE AND DOESN'T TOLERATE WEARING THE MASK. MARILU MOLINA, RETAIL PHARMACIST, NOTIFIED OF INCREASING O2 REQUIREMENTS- NEW ORDERS RECEIVED FOR AIRVO NEEDED.
--- NOTE | 2019-02-27 05:54 | NUR ---
SHIFT SUMMARY NO ACUTE CHANGES OTHER THAN PT IS NOW ON AIRVO 55L/80%. O2 SATS 95-97% WHEN ASLEEP, BUT WHEN PT IS AWAKE HE IS ANXIOUS AND TACHYPNEIC WITH SATS DECREASING TO HIGH 80s/MID 90s. LUNGS ARE COARSE WITH OCCASIONAL RHONCHI AND WHEEZES NOTED. MOIST COUGH OCCASIONALLY PRODUCTIVE, BUT PT SWALLOWS IT. CONTINUES IN AFIB, RATE 90s. BP STABLE. AFEBRILE. USES URINAL TO VOID. PT HAS BEEN NPO SINCE MIDNIGHT FOR POSSIBLE SURGERY. NO CHANGES IN RIGHT LOWER EXTREMITY- PT STILL C/O MILD NUMBNESS IN TOES. MEDICATED WITH FENTANYL 25MCG IV X 2 DOSES FOR C/O RIGHT HIP PAIN. WILL REPORT TO DAY SHIFT RN WHEN AVAILABLE.
[2019-02-27 08:23] LABS: BASOPHILS ABSOLUTE AUTO 0.01 K/mm3 (0.00-0.23); BASOPHILS PERCENT AUTO 0 % (0-2); EOSINOPHILS PERCENT AUTO 0 % (0-6); Hematocrit 48.5 % (37.0-53.0); Hemoglobin 16.7 g/dL (13.5-17.5); IMMATURE GRAN ABSOLUTE AUTO 0.04 K/mm3 (0.00-0.10); IMMATURE GRAN PERCENT AUTO 0 % (0-1); LYMPHOCYTES ABSOLUTE AUTO 0.27 K/mm3 (0.84-5.20); LYMPHOCYTES PERCENT AUTO 3 % (21-46); MONOCYTES ABSOLUTE AUTO 0.27 K/mm3 (0.16-1.47); MONOCYTES PERCENT AUTO 3 % (4-13); Mean Corpuscular HGB 32.1 pg (26.0-34.0); Mean Corpuscular HGB Conc 34.4 g/dL (31.5-36.5); Mean Platelet Volume 10.7 fL (9.1-12.4); NEUTROPHILS ABSOLUTE AUTO 8.83 K/mm3 (1.96-9.15); NEUTROPHILS PERCENT AUTO 94 % (41-73); Platelet Count 245 K/mm3 (150-400); RDW Coefficient Variation 13.5 % (11.7-14.2); RDW Standard Deviation 45.7 fL (35.1-46.3); White Blood Cell Count 9.42 K/mm3 (4.00-11.30)
[2019-02-27 08:25] LABS: Mean Corpuscular Volume 93 fL (80-100)
[2019-02-27 08:38] LABS: Anion Gap 9 mmol/L (6-16); Blood Urea Nitrogen 26 mg/dL (8-24); Bun/Creatinine Ratio 37.6 (12.0-20.0); CO2, Blood 27 mmol/L (21-32); Calcium, Blood 9.1 mg/dL (8.5-10.1); Chloride, Blood 98 mmol/L (98-108); Creatinine, Blood 0.69 mg/dL (0.60-1.20); Glomerular Filtration Rate >60 (60-); Glucose, Blood 155 mg/dL (70-99); Potassium, Blood 4.5 mmol/L (3.5-5.5); Sodium, Blood 134 mmol/L (136-145)
--- NOTE | 2019-02-27 09:20 | NUR ---
Recieved report from Amanda WEBB. Patient supine in bed and HOB 30+ degrees. Patient is alert and has garbled speech and is difficult to understand at times. He is on AirVo 55L at 80% and sats 88-92% while awake and 95-97 while sleeping. He is very anxious while awake. He used urinal without assist and had 250ml of dark yellow urine. He has mediprt accessed right chest NS at [facility]. Dr العراقي by and rewstarted Lovenox. He tolerated all am meds with apple juice. Started 18ga IV in RACV for CT chest w/contrast and went to CT and he tolerated well on NRM at 10L O2 ther and 12L O2 on way back. He is currently resting back on AirVo at original settings.
--- NOTE | 2019-02-27 12:23 | NUR ---
Brief initial palliative care consult: Mr. Sarabia is a 64 year old gentleman with a history of COPD, lung CA, intermittent a-fib, and right eye blindness. He tripped over his cane getting out of his car, fell and fractured his hip. He just finished lunch and is SOB after eating. He is on an airvo at this time and sats are 87-88%. He denies pain. Intentionally kept this visit brief due to his respiratory symptoms post eating. Spoke with nursing and with Dr. Mark who is planning a thoracentesis for tomorrow and antibiotics. Will need to wait to see how he responds to respiratory treatments before going forward with addressing his fractured hip. His respiratory status is too compromised at this time for surgery. He currently is a DNR, there is no POLST or AD on file. Will address POLST/AD when pt's breathing improves enough to have a conversation without being so winded.
--- NOTE | 2019-02-27 12:30 | NUR ---
Patient remains on AirVo at 55L and changed to 84% and sats 95%, he has been sleeping off and on. He tolerated lunch well and ate about 80% of meal with intermitent desats. Patient has good productive cough, but swallows after getting up. VSS, remains in A-Fib rate low 100's. Nurse notify to hold Lovenox in am for elvin.
--- NOTE | 2019-02-27 14:46 | NUR ---
Patient continues to rest no other changes, denies any pain when laying still, butb 5/10 with movement or position changes.
--- NOTE | 2019-02-27 16:16 | NUR ---
Patient resting, medicated for R hip pain and patient states feeling better 10/15. VSS 55L O2 84% and sats mid 90%'s, Son by to visit and has called several times and girlfriend Irena on way to see him.
--- NOTE | 2019-02-27 18:21 | NUR ---
Family has gone home and talked with them about plan for patient. He tolerated dinner 100% and now currently sleeping 55L O2 at 84% and sats 94%. He denies any current pain prior to falling asleep.
--- NOTE | 2019-02-27 19:54 | NUR ---
START OF SHIFT: BEDSIDE REPORT FROM SCARLET WEBB. PT AWAKE, VSS. RT JERRY AT BEDSIDE WITH PT EXERCISING FLUTTER VALVE. PT THEN WITH PRODUCTIVE COUGH PRODUCING PHLEGM. PT REMAINS ON AIRVO 2 40L TOLERATING WELL. PT FALLS ASLEEP WHEN NO ON AT BEDSIDE.
--- NOTE | 2019-02-27 20:55 | NUR ---
PT WITH FAMILY AT BEDSIDE. PT CONVERSING APPROPRIATELY.
--- NOTE | 2019-02-27 22:56 | NUR ---
PT AWAKENED AND CONSUMED HIS CHEESEBURGER. NOW SLEEPING. CALL LIGHT WITHIN REACH.
[2019-02-28 03:23] LABS: BASOPHILS ABSOLUTE AUTO 0.01 K/mm3 (0.00-0.23); BASOPHILS PERCENT AUTO 0 % (0-2); EOSINOPHILS PERCENT AUTO 0 % (0-6); Hematocrit 45.3 % (37.0-53.0); Hemoglobin 15.6 g/dL (13.5-17.5); IMMATURE GRAN ABSOLUTE AUTO 0.05 K/mm3 (0.00-0.10); IMMATURE GRAN PERCENT AUTO 0 % (0-1); LYMPHOCYTES ABSOLUTE AUTO 0.21 K/mm3 (0.84-5.20); LYMPHOCYTES PERCENT AUTO 2 % (21-46); MONOCYTES PERCENT AUTO 7 % (4-13); Mean Corpuscular HGB 32.5 pg (26.0-34.0); Mean Corpuscular HGB Conc 34.4 g/dL (31.5-36.5); Mean Corpuscular Volume 94 fL (80-100); Mean Platelet Volume 9.6 fL (9.1-12.4); NEUTROPHILS ABSOLUTE AUTO 10.48 K/mm3 (1.96-9.15); NEUTROPHILS PERCENT AUTO 91 % (41-73); Platelet Count 264 K/mm3 (150-400); RDW Coefficient Variation 13.5 % (11.7-14.2); RDW Standard Deviation 47.3 fL (35.1-46.3); White Blood Cell Count 11.55 K/mm3 (4.00-11.30)
[2019-02-28 03:38] LABS: International Normalized Ratio 0.97; Prothrombin Time Results 10.3 Sec (9.7-11.5)
[2019-02-28 03:48] LABS: Anion Gap 8 mmol/L (6-16); Blood Urea Nitrogen 37 mg/dL (8-24); Bun/Creatinine Ratio 49.5 (12.0-20.0); CO2, Blood 28 mmol/L (21-32); Chloride, Blood 101 mmol/L (98-108); Creatinine, Blood 0.75 mg/dL (0.60-1.20); Glomerular Filtration Rate >60 (60-); Glucose, Blood 168 mg/dL (70-99); Magnesium, Blood 2.2 mg/dL (1.6-2.4); Phosphorus, Blood 3.2 mg/dL (2.5-4.9); Potassium, Blood 3.4 mmol/L (3.5-5.5); Sodium, Blood 137 mmol/L (136-145)
--- NOTE | 2019-02-28 05:34 | NUR ---
EKG: PT HR HAS SLOWLY INCREASED TO 130'S SPIKING INTO THE 160'S. EKG DONE SHOWING A-FIB WITH RVR. PT DENIES PAIN NOR SOB. CALL MADE TO DR. LÓPEZ'S PAGER. PT CURRENTLY LYING IN BED WITH EYES CLOSED, BEAU, SKIN PWD. CALL LIGHT WITHIN REACH.
--- NOTE | 2019-02-28 05:50 | NUR ---
HOSPITALIST NOTIFIED: RE: EKG AND INCREASED HR. NEW ORDERS TO GIVE LOPRESSOR 5mg IVP, WAIT 5 MINUTES AND ADMINISTER SECOND DOSE LOPRESSOR 5mg IVP. CALL BACK IF NO RESULTS FOR POSSIBLE START OF CARDIZEM gtt.
--- NOTE | 2019-02-28 07:32 | NUR ---
Recieved report from Laura WEBB. Patient sitting up in a chair and awake and able to communicate his needs. He denies any current need for pain intervention or has any current pain. He is on RA and sats 94%. He has PICC line in GINA and dressing intact and site WNL's and is infusing Protonix 10ml/hr and NS TKO at 10ml/hr. He also has PowerGlide in JEN dressing intact and site WNL's flushed and SL'd. He is a SBA in room with ambulation r/t weakness and lines and tubes. He has TEDS to bilateral LE's. Patient am cbg 142 and no coverage needed and is sitting up in bed starting breakfast.
--- NOTE | 2019-02-28 07:57 | NUR ---
Recieved report from Laura WEBB. Patient supine with HOB at 30 degrees and sleeping. He is on AirVo 50L O2 at 53% and sats 94%.He has mediport to right chest and dressing intact and site WNL's and is infusing NS TKO at 10ml/hr. He has TEDS bilateral to LE's. He has 18ga RAC for CT yesterday and has been flushed and SL'd. Lovenox held for thora around noon.
--- NOTE | 2019-02-28 10:11 | NUR ---
Dr Morris and Dr Felix have been by to see patient. He is now PCU status and awaiting transfer. He transfered to bathroom with SBA and tolerated well. He remains on RA and sats 96%. VSS.
--- NOTE | 2019-02-28 10:16 | NUR ---
US in room getting ready for Thora and getting pre images for radiologist, Dr Mark by to see patient.
[2019-02-28 11:25] LABS: Automated BF WBC Count 1.194 K/mm3 (0-999); Body Fluid WBC Count 1194 /mm3 (0-999)
[2019-02-28 11:36] LABS: Protein, Body Fluid 4.3 g/dL
--- NOTE | 2019-02-28 12:00 | NUR ---
PATIENT SAT UP AT BEDSIDE AND LEANED OVET BEDSIDE TABLE WITH TWO PILLOW. MEDICATED PRIOR TO PROCEDURE. THEY TOOK APPROX 1 LITER OF THICK TEA COLORED OUTPUT AND WAS SENT TO LAB FOR STUDIES. HE TROLERATED WITH SOME DISCOMFORT GETTING BACK IN BED WITH TRWO ASSIST. HE THEN SAT UP FOR LUNCH AND ATE 100% AND 240ML'S. VSS THROUGHOUT PROCEDURE AND CURRENTLY HR 100-120'S
[2019-02-28 12:07] LABS: RBC Count, Body Fluid 1040 /mm3 (0-0)
[2019-02-28 12:09] LABS: Appearance, Body Fluid Clear (Clear); Color, Body Fluid Yellow (None-Yellow)
[2019-02-28 12:19] LABS: Total Cell Count, Body Fluid 100
--- NOTE | 2019-02-28 15:42 | NUR ---
Post thora xray done. He has been sleeping since procedure. Dr Wolff by and wrote orders on patient and he went back to sleep. His air hose came disconneted and desated to 83% for short period and re connected and came up to 95% quicckly. I talked with him about pulling at tubes and he understood. No Other significant changes.
--- NOTE | 2019-02-28 16:18 | NUR ---
Patient was taken over to PCU 12 on 15L O2 via NRBM and tolerated well and placed back on AirVo at 50L O2 54%. All personal belonging taken over. He was a 4 person slide transverse to PCU bed.
--- NOTE | 2019-02-28 18:10 | NUR ---
TRANSFER NOTE/SHIFT JANNY RECEIVED REPORT FROM JON NOVAK IN ICU. PT TO ROOM AT 1610, 4 PERSON TRANSFER WITH SLIDER SHEET TO BED. ONCE PT IN BED AIRVO REPLACED, NONREBREATHER MASK USED FOR TRANSPORT. PT ON 50L O2 VIA HIGH FLOW HUMIDIFIED NC AT 51%, SPO2 92-95, LS COARSE T/O. BREATHING LABROED, SOB WITH MOVEMENT. PT RESPONDS TO VERBAL STIMULI, ORIENTED TO SELF AND PLACE. PT STATES BLIND IN RIGHT EYE, CLOUDED WHITE IN APPEARANCE. PT REPROTS PAIN 5/10, DENIES NEEDS FOR PAIN MEDICATION. TELE SHOWING AFIB, HR TRENDING UP 120-130, TOUCHING 160'S AT TIMES, MEDICATED WITH METOPROLOL IV x1. OTHER VSS. PT WAKES UP EASILY TO VERBAL STIMULI, STAYS AWAKE WITH INTERACTION OR EATING, QUICKLY FALLS BACK ASLEEP. WILL CONTINUE TO MONITOR UNITL REPORT GIVEN TO ONCOMING RN.
--- NOTE | 2019-02-28 23:24 | NUR ---
PATIENT ASKING FOR A SNACK. GIVEN PUDDING. PATIENT DESATING INTO THE MID TO HIGH 80'S WHILE EATING. HIFLOW OXYGEN IN PLACE.
[2019-03-01 03:57] LABS: BASOPHILS ABSOLUTE AUTO 0.01 K/mm3 (0.00-0.23); BASOPHILS PERCENT AUTO 0 % (0-2); EOSINOPHILS PERCENT AUTO 0 % (0-6); Hematocrit 45.7 % (37.0-53.0); Hemoglobin 15.6 g/dL (13.5-17.5); IMMATURE GRAN ABSOLUTE AUTO 0.05 K/mm3 (0.00-0.10); IMMATURE GRAN PERCENT AUTO 0 % (0-1); LYMPHOCYTES ABSOLUTE AUTO 0.24 K/mm3 (0.84-5.20); LYMPHOCYTES PERCENT AUTO 2 % (21-46); MONOCYTES ABSOLUTE AUTO 0.99 K/mm3 (0.16-1.47); MONOCYTES PERCENT AUTO 8 % (4-13); Mean Corpuscular HGB 31.8 pg (26.0-34.0); Mean Corpuscular HGB Conc 34.1 g/dL (31.5-36.5); Mean Corpuscular Volume 93 fL (80-100); Mean Platelet Volume 9.6 fL (9.1-12.4); NEUTROPHILS ABSOLUTE AUTO 11.16 K/mm3 (1.96-9.15); NEUTROPHILS PERCENT AUTO 90 % (41-73); Platelet Count 264 K/mm3 (150-400); RDW Coefficient Variation 13.8 % (11.7-14.2); RDW Standard Deviation 46.8 fL (35.1-46.3); White Blood Cell Count 12.45 K/mm3 (4.00-11.30)
--- NOTE | 2019-03-01 04:10 | NUR ---
NOTIFIED DR. FROST THAT PATIENT IS MAINTAINING HR 110-120'S AND ASKED FOR PRN METOPROLOL. ORDER TAKEN FOR METOPROLOL 5MG IV PUSH FOR HR >130. NO FURTHER ORDERS TAKEN.
[2019-03-01 04:15] LABS: Albumin, Blood 2.7 g/dL (3.4-5.0); Anion Gap 8 mmol/L (6-16); Blood Urea Nitrogen 35 mg/dL (8-24); Bun/Creatinine Ratio 53.4 (12.0-20.0); CO2, Blood 27 mmol/L (21-32); Calcium, Blood 8.8 mg/dL (8.5-10.1); Chloride, Blood 104 mmol/L (98-108); Creatinine, Blood 0.66 mg/dL (0.60-1.20); Glomerular Filtration Rate >60 (60-); Glucose, Blood 137 mg/dL (70-99); Magnesium, Blood 1.9 mg/dL (1.6-2.4); Phosphorus, Blood 3.1 mg/dL (2.5-4.9); Potassium, Blood 4.3 mmol/L (3.5-5.5); Sodium, Blood 139 mmol/L (136-145)
--- NOTE | 2019-03-01 06:14 | NUR ---
PATIENT ON HIFLOW AT 50L. PATIENT DESATING INTO THE 70'S WITH ANY ACTIVITY IN THE BED. PATIENT HAS BEEN MAKING SMALL ADJUSTMENTS IN BED INDEPENDENTLY. TWO ASSIST TO GET ON BEDPAN, DUE TO PAIN IN RIGHT HIP. PATIENT WITHDRAWN AND SLIGHTLY GRUMPY. PATIENT IS TIRED OF WEARING THE HIFLOW AND TAKES IT OFF AND NEEDS TO BE REMINDED TO PUT BACK ON. PATIENT COMPLYS. GIVEN PRN FENTYANL ONCE THROUGH NIGHT. GIVEN TWO SNACKS THROUGH THE NIGHT.
--- NOTE | 2019-03-01 07:00 | NUR ---
REC'D REPORT FROM JM, RN AND AM ASSUMING CARE OF THIS PT.
--- NOTE | 2019-03-01 08:30 | NUR ---
AM ASSESSMENT PT DROWSY THIS AM AND RESTS/SLEEPS WHEN UNDISTURBED. PT AWAKENS EASILY TO VERBAL STIMULI. MOVES SELF IN BED BUT DOES NEED SOME ASSIST WITH ADL'S R/T PAIN FROM HIP FX. PT DENIES ANY PAIN AT THIS TIME. PT BLIND IN RT EYE R/T TRAUMA PER PT. LUNGS WITH INS/EXP WHEEZES AND DIMINISHED IN LT LUNG AND DIMINISHED/TIGHT T/O RT LUNG. SPO2 SATS LOW-MID 90% RANGE ON AIRVO @ 51% FI02. HR IRREGUALR, ATRIAL FIB- 120-140'S. WILL MEDICATION W/ AM CARDIAC MEDICATIONS AND COVER W/ METOPROLOL PRN FOR HR SUSTAINED >130. PT BECOMES DYSPNEIC/HYPOXIC WITH MINIMAL EXERTION. PT VOIDING PER URINAL WITHOUT ASSIST.
--- NOTE | 2019-03-01 16:45 | NUR ---
SHIFT SUMMARY: PT REST/SLEEPS T/O MOST SHIFT WHEN UNDISTURBED. AWAKENS EASILY TO VERBAL STIMULI. MOVES SELF IN BED BUT WILL CALL FOR ASSIST W/REPOSITIONING APPROPRIATLEY. LUNGS GENERALLY DIMINISHED W/ INS/EXP WHEEZED IN THE LT LUNG, AND EXP COARSENESS HEARD IN THE RT BASE. WEANED PT FROM FI02-51% ON AIRVO TO 3L 02 VIA HUMIDIFIED N/C. PT HAS BEEN FOUND A COUPLE TIMES LATER AFTERNOON WITHOUT 02 ON. HR IRREGULAR, ATRIAL FIB 110-120'S AFTER BEING TX'D WITH PRN IV METOPROLOL. PT TO START INCREASED PO DOSE OF METOPROLOL THIS EVENING. PT HAS GOOD APPETITE, DESPITE DYSPNEA/HYPOXIA WITH MINIMAL EXERTION. PT VOIDS PER URINAL. TX'D ONCE W/IV FENTANYL FOR RT HIP PAIN R/T HIP FX.
--- NOTE | 2019-03-01 19:27 | NUR ---
REPORTED OFF TO JON SAMANO WHOM WILL ASSUME CARE OF THIS PT.
--- NOTE | 2019-03-01 21:40 | NUR ---
PT EATING PPB SANDWICH (NO CRUST) WITH MILK, WATCHING TV. OCCASIONALLY TALKING ON PHONE TO FAMILY.
--- NOTE | 2019-03-02 01:34 | NUR ---
IV METOPROLOL GIVEN FOR INCREASING HR INTO THE 140'S PER TELE MONITOR. PT WATCHING TV AND EATING SANDWICH. CALL LIGHT WITHIN REACH. PT WITH NO C/O, DENIES PAIN OR DISCOMFORT.
[2019-03-02 03:54] LABS: BASOPHILS ABSOLUTE AUTO 0.01 K/mm3 (0.00-0.23); BASOPHILS PERCENT AUTO 0 % (0-2); EOSINOPHILS PERCENT AUTO 0 % (0-6); Hematocrit 45.8 % (37.0-53.0); Hemoglobin 15.7 g/dL (13.5-17.5); IMMATURE GRAN ABSOLUTE AUTO 0.08 K/mm3 (0.00-0.10); IMMATURE GRAN PERCENT AUTO 1 % (0-1); LYMPHOCYTES ABSOLUTE AUTO 0.23 K/mm3 (0.84-5.20); LYMPHOCYTES PERCENT AUTO 2 % (21-46); MONOCYTES ABSOLUTE AUTO 1.03 K/mm3 (0.16-1.47); MONOCYTES PERCENT AUTO 9 % (4-13); Mean Corpuscular HGB 32.4 pg (26.0-34.0); Mean Corpuscular HGB Conc 34.3 g/dL (31.5-36.5); Mean Corpuscular Volume 95 fL (80-100); Mean Platelet Volume 9.7 fL (9.1-12.4); NEUTROPHILS ABSOLUTE AUTO 10.66 K/mm3 (1.96-9.15); NEUTROPHILS PERCENT AUTO 89 % (41-73); Platelet Count 271 K/mm3 (150-400); RDW Coefficient Variation 13.8 % (11.7-14.2); Red Blood Cell Count 4.84 M/mm3 (4.30-5.90); White Blood Cell Count 12.01 K/mm3 (4.00-11.30)
[2019-03-02 04:15] LABS: Anion Gap 6 mmol/L (6-16); Blood Urea Nitrogen 37 mg/dL (8-24); Bun/Creatinine Ratio 52.8 (12.0-20.0); CO2, Blood 29 mmol/L (21-32); Calcium, Blood 8.8 mg/dL (8.5-10.1); Chloride, Blood 104 mmol/L (98-108); Glomerular Filtration Rate >60 (60-); Glucose, Blood 148 mg/dL (70-99); Potassium, Blood 4.5 mmol/L (3.5-5.5); Sodium, Blood 139 mmol/L (136-145)
--- NOTE | 2019-03-02 06:47 | NUR ---
PT AWAKE MOST OF NOC REQUESTING SNACKS FREQUENTLY. PT TRYING TO SLEEP LAST PART OF SHIFT AFTER ENCOURAGING PT TO TRY AND SLEEP. DESPITE INCREASED ORAL METOPROLOL AND ONE DOSE METOPROLOL 5mg IVP, PT'S HR REMAINS IN THE 120'S-140'S. PT C/O THIS AM OF NOT BEING ABLE TO SLEEP BUT FALLS ASLEEP WHEN TALKING. PT NOTED TO HAVE SLEEP APNEA SPELLS OF APPRX 30 SEC, THEN AWAKENS TAKING A DEEP BREATH. SATS REMAINING IN THE LOW 90'S. PT EARLY IN SHIFT KEPT REMOVING N/C BUT HAS DONE WELL KEEPING IT HAVING IT TAPED TO HIS CHEEKS. WILL PASS ON TO DAY RN. PT WITH CALL LIGHT WITHIN REACH.
--- NOTE | 2019-03-02 17:38 | NUR ---
SHIFT SUMMARY PT ALERT AND ORIENTED. PT SLEPT MOST OF SHIFT, BUT AWAKENS EASILY. BP STABLE. HR HAS BEEN AFIB WITH A RATE RANGING FROM 110-150. NEW ORDERS FOR DILTIAZEM GTT THIS AFTERNOON SEE EMAR. O2 SATS REMAIN ABOVE 90% ON 4L HIGH FLOW NC. PT COMPLAINED OF PAIN IN HIS HIP THAT WAS RELIEVED WITH MEDICATION ADMINISTRATION. PT REPOSITIONING HIMSELF IN BED. WILL CONTINUE TO MONITOR AND REPORT TO ONCOMING RN. CALL LIGHT IN REACH.
--- NOTE | 2019-03-03 06:28 | NUR ---
SHIFT SUMMARY PT HAS REMAINED AOX4 THROUGHOUT SHIFT. VSS. PLEASANT AND COOPERATIVE WITH CARE. PT REMAINS ON BEDREST AND TURNS SELF FROM SIDE TO SIDE INDEPENDENTLY. HAS SLEPT THROUGHOUT MUCH OF THE NIGHT, BUT WAKES EASILY FOR CARE. O2 SATS HAVE REMAINED >90% ON 4L VIA NASAL CANNULA. PT CONTINUES TO HAVE OCCASIONAL NON-PRODUCTIVE COUGH. MEDICATED MULTIPLE TIMES FOR PAIN TO R HIP THAT DECREASED WITH ORDERED MEDICATIONS. CARDIAC RHYTHM HAS REMAINED IN ATRIAL FIBRILLATION WITH A RATE RANGING FROM 100-120, CARDIZEM DRIP CONTINUES TO INFUSE AND TITRATED PER PROTOCOLS. NO OTHER CHANGES NOTED FROM INITIAL ASSESSMENT. WILL CONTINUE TO MONITOR AND REPORT TO ONCOMING SHIFT RN. BED IN LOW POSITION, CALL LIGHT IN REACH.
--- NOTE | 2019-03-03 08:53 | NUR ---
Echocardiogram completed.
--- NOTE | 2019-03-03 18:00 | NUR ---
SHIFT SUMMARY PT RESTING IN BED THROUGHOUT THE DAY. ALERT AND ORIENTED X3, BUT SLEEPY OFF AND ON. C/O RIGHT HIP PAIN 4-01/14, MEDICATED WITH PRN PAIN MEDS. LUNG SOUNDS COARSE THROUGHOUT. AFIB RATE 90-120s ON TELEMETRY, CARDIZEM GTT AT 5 ML/HR AT THE END OF THE SHIFT. HEART RATE 110. RIGHT LEG WEAKER THAN LEFT. WILL CONTINUE TO MONITOR.
[2019-03-04 04:44] LABS: BASOPHILS ABSOLUTE AUTO 0.02 K/mm3 (0.00-0.23); BASOPHILS PERCENT AUTO 0 % (0-2); EOSINOPHILS ABSOLUTE AUTO 0.01 K/mm3 (0.00-0.68); EOSINOPHILS PERCENT AUTO 0 % (0-6); Hemoglobin 15.3 g/dL (13.5-17.5); IMMATURE GRAN ABSOLUTE AUTO 0.28 K/mm3 (0.00-0.10); IMMATURE GRAN PERCENT AUTO 2 % (0-1); LYMPHOCYTES ABSOLUTE AUTO 0.55 K/mm3 (0.84-5.20); LYMPHOCYTES PERCENT AUTO 4 % (21-46); MONOCYTES ABSOLUTE AUTO 1.71 K/mm3 (0.16-1.47); MONOCYTES PERCENT AUTO 13 % (4-13); Mean Corpuscular HGB 32.1 pg (26.0-34.0); Mean Corpuscular HGB Conc 33.3 g/dL (31.5-36.5); Mean Corpuscular Volume 97 fL (80-100); Mean Platelet Volume 9.4 fL (9.1-12.4); NEUTROPHILS ABSOLUTE AUTO 10.94 K/mm3 (1.96-9.15); NEUTROPHILS PERCENT AUTO 81 % (41-73); Platelet Count 277 K/mm3 (150-400); RDW Coefficient Variation 13.5 % (11.7-14.2); RDW Standard Deviation 48.3 fL (35.1-46.3); Red Blood Cell Count 4.76 M/mm3 (4.30-5.90); White Blood Cell Count 13.51 K/mm3 (4.00-11.30)
[2019-03-04 04:58] LABS: Albumin, Blood 2.6 g/dL (3.4-5.0); Anion Gap 6 mmol/L (6-16); Blood Urea Nitrogen 32 mg/dL (8-24); CO2, Blood 31 mmol/L (21-32); Calcium, Blood 8.3 mg/dL (8.5-10.1); Chloride, Blood 102 mmol/L (98-108); Glomerular Filtration Rate >60 (60-); Glucose, Blood 99 mg/dL (70-99); Phosphorus, Blood 3.5 mg/dL (2.5-4.9); Potassium, Blood 4.7 mmol/L (3.5-5.5); Sodium, Blood 139 mmol/L (136-145)
--- NOTE | 2019-03-04 05:47 | NUR ---
PT TO XRAY AT THIS TIME
--- NOTE | 2019-03-04 05:48 | NUR ---
SUMMARY NO ACUTE CHANGES NOTED FROM ASSESSMENT. LUNGS REMAIN COARSE/DIM IN THE BASES. PT IS ON 3 L VIA NC @ BASELINE, DENIES SOB/CP. CARDIZEM INFUSING @ 10 ML/HR. VSS, PT REMAINS IN AFIB PER FIBER GLASS WORKER. NO BRUIDING NOTED TO RIGHT HIP, CIRC WNL. PAIN MANAGED WITH IV FENTANYL PRN PER EMAR. VOIDING WNL. CALL LIGHT IN REACH. WCTM AND REPORT TO DAY RN
--- NOTE | 2019-03-04 06:07 | NUR ---
PT BACK FROM XRAY
--- NOTE | 2019-03-04 08:11 | NUR ---
NURSING PCU DAYSHIFT: Assumed care of pt at approx 0700. A/O, very pleasant, cooperative w/care. Speech is slurred though able to express needs, chronic R facial droop, R eye blind. C/O 6/10 pain to R hip r/t recent fx, treating w/meds and positioning, able to help reposition in bed. Skin is intact w/no breakdown noted. Tele in place, afib w/HR 90's, no c/o CP/pressure, HTN prior to a.m. meds, no noted edema. L/S coarse in R lobes, L lobes diminished, denies dyspnea, O2 sat 90's on 3L HF NC, occ harsh/productive cough. Abd SNT, BT+, voiding w/o difficulty. PIV x1, mediport accessed in RCW, diltiazem gtt infusing at 10cc/hr. No s/s of acute distress at this time. Bedbath and linen change completed this a.m. Pt denies any current needs or questions regarding plan of care. Call light in reach and pt is able to use w/o difficulty. Awaiting rounding from PMD, cont to monitor for any changes.
--- NOTE | 2019-03-04 13:07 | NUR ---
Pt visit this afternoon. Received second referral for Pt. Spoke with Dr Mark and he reports poor prognosis for Pt. Pt is resting in bed upon arrival and he reports 7/10 hip pain. Engaged in therapeutic discussion and encouraged Pt to express concerns and fears regarding diagnosis. Pt reports still attempting to process information and expresses some frustration stating "I though I had this licked". Encouraged Pt to ask questions regarding conversation with Dr Mark. Pt reports none at this time. Discussed hospice as an option and Pt inquires details about hospice. Educated Pt on hospice and comfort care philosophy with V/U made by Pt. Pt expresses interest and is considering hospice and comfort care. Suggested to Pt to have discussion with oncologist before making a decision. Pt is agreeable. Pt reports he would like to pursue surgery for his hip fracture. No other concerns reported at this time. Received verbal permission from Pt to call his SO and discuss case and concerns. Spoke with bedside nurse Amy and she expresses concerns that Pt's current regimen is not managing his pain. Called Dr Yepez and discussed case. Place order for oxycodone 5mg PO Q4 PRN for pain per V/O from Dr Yepez. Called and spoke with SO Yasmeen. Engaged in therapeutic discussion regarding diagnosis. Listened as Yasmeen expresses frustration and concerns. Yasmeen reports Pt's daughter recently lost her to cancer and expresses concerns how daughter will take news. Discussed Pt's consideration of hospice and educated on hospice philosophy. Discussed Pt's wishes to pursue surgery for fractured hip. Yasmeen expresses appreciation of call and instructed Yasmeen to call with any questions or concerns. Palliative Care will remain available.
--- NOTE | 2019-03-04 13:33 | NUR ---
Spiritual care visit conducted. Patient openly shares about his medical issues and the mental/emotional anguish the diagnosis creates. I talk with patient about his coping skills, resources and oriental orthodox beliefs. Patient gets tearful as he reviews his life and the current status of things. I then focus back on what patient does have now and what he still can do and how he can find a way to enjoy each day. As we talk about roberto, patient admits his struggle to trust. We discuss how he can continue to grow in trust and hope and how important this is going forward. I provide empathic listening, pastoral child guidance counselor, copanionship and prayer. Patient responds well and displays evidence of restored roberto. I will continue to remain available to patient and family.
--- NOTE | 2019-03-04 17:01 | NUR ---
NURSING PCU DAYSHIFT SUMMARY: No significant changes noted t/o the shift. HR has continued to show improvement and now averages 80-90's, diltiazem gtt titrated down to 5 mls/hr. Seen by pulmonology, ortho, and PMD, new d/o received. Oncology at bedside this afternoon for consult, awaiting progress note. Plan for R hip sx tomorrow, pt to be NPO after 2400, lovenox to be held in a.m., CXR to be completed prior to sx. Procedure discussed by ortho w/pt, all questions addressed, pt denies any concerns/questions at this time. Respiratory status unchanged. O2 sat remains stable on 3L HF NC, denies dyspnea at rest. Continues to experience pain in R hip, new d/o received for PO pain management medication, pt tolerated well and experienced increased comfort after administration w/no changes to respirations noted. No s/s of acute distress at this time. Call light in reach and pt is able to use w/o difficulty. Cont to monitor until rpt is given to NOC RN.
--- NOTE | 2019-03-05 05:19 | NUR ---
PATIENT HAD TO GET A POWER GLIDE DUE TO LOSING IV IN RIGHT FOREARM. PATIENT NPO AT MIDNIGHT AFTER A SANDWICH JUST BEFORE. PATIENT WITHDRAWN THROUGH THE NIGHT. NOT WANTING TO TALK ABOUT WHAT HIS PLANS ARE FOR HIS TREATMENT AND CARE. PATIENT GIRLFRIEND AND DAUGHTER IN TO VISIT IN THE EARLY EVENING. VITALS STABLE. PATIENT CONTINUED ON DILTIAZEM 5MG/HR THROUGHOUT THE NIGHT.
--- NOTE | 2019-03-05 07:38 | NUR ---
NURSING PCU DAYSHIFT: Assumed care of pt at approx 0700. A/O, very pleasant, fairly cooperative w/care. C/O 5/10 R hip pain r/t recent fx, treating w/meds as ordered and positioning. Skin is intact w/no breakdown noted. General weakness present though able to assist w/ADL's. Tele in place, afib w/HR 90-105, no c/o CP/pressure, SBP 140's prior to a.m. meds, no noted edema. L/S coarse t/o and dim in LLL, O2 sat low to mid 90's on 3L NC, denies dyspnea, harsh/productive cough. Abd SNT, BT+, voiding w/o difficulty using urinal at bedside. PG present in LUE and s/l, accessed mediport to RCW w/diltizem gtt infusing at 5cc/hr. No s/s of acute distress at this time. Denies any current needs, plan of care discussed including schedule for R hip repair, questions addressed. Call light in reach, awaiting rounding from pulm, ortho, oncology, and PMD. RT currently at bedside for breathing tx. Cont to monitor for any changes.
[2019-03-05 09:14] LABS: BASOPHILS ABSOLUTE AUTO 0.02 K/mm3 (0.00-0.23); BASOPHILS PERCENT AUTO 0 % (0-2); EOSINOPHILS ABSOLUTE AUTO 0.01 K/mm3 (0.00-0.68); EOSINOPHILS PERCENT AUTO 0 % (0-6); Hematocrit 40.9 % (37.0-53.0); Hemoglobin 13.8 g/dL (13.5-17.5); IMMATURE GRAN ABSOLUTE AUTO 0.28 K/mm3 (0.00-0.10); IMMATURE GRAN PERCENT AUTO 2 % (0-1); LYMPHOCYTES ABSOLUTE AUTO 0.55 K/mm3 (0.84-5.20); LYMPHOCYTES PERCENT AUTO 4 % (21-46); MONOCYTES ABSOLUTE AUTO 1.59 K/mm3 (0.16-1.47); MONOCYTES PERCENT AUTO 11 % (4-13); Mean Corpuscular HGB 31.9 pg (26.0-34.0); Mean Corpuscular HGB Conc 33.7 g/dL (31.5-36.5); Mean Corpuscular Volume 95 fL (80-100); Mean Platelet Volume 9.8 fL (9.1-12.4); NEUTROPHILS ABSOLUTE AUTO 12.24 K/mm3 (1.96-9.15); NEUTROPHILS PERCENT AUTO 83 % (41-73); Platelet Count 248 K/mm3 (150-400); RDW Coefficient Variation 13.4 % (11.7-14.2); Red Blood Cell Count 4.33 M/mm3 (4.30-5.90); White Blood Cell Count 14.69 K/mm3 (4.00-11.30)
[2019-03-05 09:28] LABS: Anion Gap 3 mmol/L (6-16); Blood Urea Nitrogen 31 mg/dL (8-24); CO2, Blood 27 mmol/L (21-32); Calcium, Blood 7.8 mg/dL (8.5-10.1); Chloride, Blood 105 mmol/L (98-108); Creatinine, Blood 0.61 mg/dL (0.60-1.20); Glomerular Filtration Rate >60 (60-); Glucose, Blood 96 mg/dL (70-99); Potassium, Blood 4.9 mmol/L (3.5-5.5); Sodium, Blood 135 mmol/L (136-145)
--- NOTE | 2019-03-05 15:30 | NUR ---
PT INTO SDS VIA BED FROM PCU. History, Chart, Medications and Allergies reviewed before start of procedure.Patient confirms NPO status and agrees with scheduled surgery. HEP LOCKED MEDIPORT. FLUSHED POWERGLIDE TO JOI LI. PT APPEARS TO HAVE PERIODS OF APNEA ALMOST CONTINUALLY. ON 3L NC WITH SPO2 95-88 % ON 3LNC.
--- NOTE | 2019-03-05 15:33 | NUR ---
PER SENIOR COUNSEL COMMERCIAL CARDISILVIA GTT STOPPED APPROX 45 MIN PROIR TO TRANSFER TO DAY SURGERY
--- NOTE | 2019-03-05 15:50 | NUR ---
pateint returned to pcu due to increased wait time from proir surgery. OR team to pick back up from room at later time
--- NOTE | 2019-03-05 17:02 | NUR ---
NURSING PCU DAYSHIFT SUMMARY: No significant changes noted t/o the shift. VS remained stable, HR maintained 90-110 w/diltiazem gtt infusing at 5cc/hr. R hip repair scheduled for today though will be delayed until tomorrow d/t scheduling difficulties, CN currently at bedside updating pt and family. Pt continues to experience pain though it has been well managed w/PO medication. Pt has remained BR t/o the shift, calls appropriately when assistance is required. Call light in reach, cont to monitor until rpt is given to NOC RN.
--- NOTE | 2019-03-05 18:51 | NUR ---
Pt visit this afternoon. Pt is resting in bed with his eyes closed. Pt does not respond to soft verbal stimuli. Pt appears comfortable with no S/S of distress at this time. Spoke with bedside nurse Amy and discussed case. Plan is for Pt to have surgery tomorrow, then upon discharge F/U with Dr Sharma for palliative cancer treatment. Amy reports current regimen is managing Pt's pain. Palliative Care will remain available.
--- NOTE | 2019-03-06 05:59 | NUR ---
PATIENT IS FEELING ANXIOUS ABOUT SURGERY. PATIENT WISHES IT WAS ALREADY DONE AND IS NOT EXCITED ABOUT WAITING ANY LONGER TO GET IT DONE. PATIENT GIVEN SANDWICH JUST BEFORE MIDNIGHT. NPO AT MIDNIGHT. PATIENT BP STABLE. PATIENT CONTINUES ON DILTIAZEM DRIP THROUGH THE NIGHT. CURRENTLY AT 10MG/HR AND MAINTAINING HR 90-110'S. PATIENT WAS UP TO 15MG/HR FOR SEVERAL HOURS AT THE PEAK OF HIS ANXIETY. PATIENT GIVEN ONE PRN OXYCODONE FOR PAIN DURING NIGHT. DENIES FURTHER PAIN.
--- NOTE | 2019-03-06 08:00 | NUR ---
ASSUMED CARE PT ALERT AND ORIENTED. 02 SATS REMAIN ABOVE 90% ON 3L NC. HR 90-100 AFIB. BP STABLE. DILTIAZEM GTT INFUSING AT 10ML/H. PT COMPLAINS OF 8/10 PAIN IN HIS RIGHT HIP. WILL MEDICATED PER EMAR. PT REPOSITIONING HIMSELF IN BED. PT UPDATED ON PLAN OF CARE. PT UPSET ABOUT NPO STATUS, BUT EDUCATED ON IMPORTANCE OF BEING NPO PRIOR TO SURGERY. WILL CONTINUE TO MONITOR CLOSELY.
--- NOTE | 2019-03-06 10:15 | NUR ---
PER MONITOR HR IS TOUCHING DOWN TO 70 FREQUENTLY AND AVERAGE IS NOW 80-90. CARIZEM GTT HAS BEEN STOPPED.
--- NOTE | 2019-03-06 11:45 | NUR ---
PT TAKEN TO DAY SURGERY FOR PROCEDURE.
[2019-03-06 11:47] LABS: PCO2 Arterial 37.7 mmHg (35-45); PO2 Arterial 63.3 mmHg (80-100); pH Blood Arterial 7.47 (7.35-7.45)
--- NOTE | 2019-03-06 11:53 | NUR ---
History, Chart, Medications and Allergies reviewed before start of procedure. Patient confirms NPO status and agrees with scheduled surgery.
--- NOTE | 2019-03-06 14:10 | NUR ---
PT TO PACU POST OP. PARAMJIT GTT INFUSING AT 175 MCG/MIN PER DR. MAHARAJ. DR. MAHARAJ STATES THAT PATIENT MAY NEED LEVOPHED GTT TO MAINTAIN PRESSURE. DISCUSSED WITH THAT PARAMJIT AND LEVOPHED GTT PATIENTS NEED TO GO TO ICU. CALLED NURSING GLOBAL ACCOUNT MANAGER FOR BED PLACEMENT TO ICU. CONTINUES GTT AT RATE SET BY ANETHESIOLOGIST
--- NOTE | 2019-03-06 15:30 | NUR ---
INITIAL ASSESSMENT PATIENT ARRIVED TO UNIT FROM GETTING R HIP TORIBIO IN OR AT 1445. PATIENT LETHARGIC BUT AROUSES TO VERBAL STIMULI. PATIENT SLOW TO RESPOND. PATIENT ALERT AND ORIENTED. R EYE CLOUDY AND BLIND. PATIENT AFEBRILE. PATIENT HAS NO COMPLAINTS OF PAIN. PATIENT SATTING 90% AND GREATER ON 3 L NC, WHICH IS HOME DOSE PER REPORT. EXPIRATORY WHEEZES NOTED IN UPPER LUNG LOBES, LOWER LOBES DIMINISHED. PATIENT HAS NOT HAD COUGH THUS FAR. PATIENT IN A.FIB, HR 80S TO LOW 100S. SBP 70S TO 90S. PATIENT ON NEOSYNEPHRINE DRIP AT 175 MCG/ MINUTE. ANTIEMBOLISM STOCKINGS IN PLACE. GI WNL. PATIENT HAS NOT VOIDED YET SINCE ARRIVAL. PATIENT HAS AQUACEL DRESSING IN PLACE TO R HIP- C/D/I. PATIENT ORIENTED TO UNIT, ROOM AND CALL LIGHT. BED LOW, CALL LIGHT IN REACH, BED ALARM ON. WILL CONTINUE TO MONITOR PATIENT FREQUENTLY THROUGHOUT SHIFT.
--- NOTE | 2019-03-06 19:00 | NUR ---
SHIFT SUMMARY PATIENT REMAINED NAPPING ON AND OFF SINCE ARRIVING FROM OR. PATIENT REMAINED RESPONDING TO VERBAL STIMULI. REMAINS ALERT AND ORIENTED, AFEBRILE. PATIENT HAS HAD NO COMPLAINTS OF PAIN. PATIENT HAS REMAINED SATTING 90% AND GREATER ON 3 L NC. PATIENT HAS REMAINED IN A.FIB, HR 80S TO LOW 100S. BP HAS RMEMAINED STABLE ON NEOSYNEPHRINE DRIP- CURRENTLY AT 100 MCG/ MINUTE. PATIENT DID NOT HAVE BM THIS SHIFT. PATIENT HAD NOT VOIDED SINCE ARRIVAL FROM OR. BLADDER SCAN PERFORMED AND SHOWED OVER 999 MLS IN BLADDER. ANDERSON CATHETER INSERTED. DRAINING YELLOW COLORED URINE. AQUACEL DRESSING TO RIGHT HIP REMAINS C/D/I. D5W 1/2 NS KCL 20 REMAINS INFUSING AT 80 MLS/ HOUR. PATIENT HAS NO COMPLAINTS AT THIS TIME. BED LOW, CALL LIGHT IN REACH. REPORT WILL BE GIVEN TO ASSUMING MUD WORKER NURSE SHORTLY.
--- NOTE | 2019-03-06 20:00 | NUR ---
[place] of Care: Care assumed at 1900hr. Patient alert and oriented x4, watching t.v. in bed. Denies pain, discomfort, SOB, or dyspnea, O2-94-96% on 3L/NC, VSS. Phenylephrine gtt infusing at 100mcg/min, decreased to 50mcg/min at shift change, BP stable. Dressing to rt hip r/t hip fx repair, dressing c/d/i. Medi-port to rt upper chest patent and intact, infusing without difficulty. Power-glide to JEN patent and intact, infusing without difficulty. Varma cath patent and intact, draining clear yellow urine. Tolerating PO fluids and soup without difficulty. Call light in reach, makes needs known. Will continue to monitor for pain, safety, comfort.
[2019-03-06 20:27] LABS: Source, Urine Catheter
[2019-03-06 20:30] LABS: Bilirubin, Urine Neg (Neg); Blood, Urine Neg (Neg); Glucose Qualitative, Urine Neg (Neg); Ketones, Urine Neg (Neg); Leukocyte Esterase, Urine Neg (Neg); Nitrite, Urine Neg (Neg); Protein, Urine Neg (Neg); Urobilinogen, Urine NORM (Normal)
[2019-03-06 20:32] LABS: Appearance, Urine Clear (Clear); Color, Urine Yellow (P-Yellow)
[2019-03-07 03:16] LABS: BASOPHILS ABSOLUTE AUTO 0.03 K/mm3 (0.00-0.23); BASOPHILS PERCENT AUTO 0 % (0-2); EOSINOPHILS PERCENT AUTO 0 % (0-6); Hematocrit 40.9 % (37.0-53.0); Hemoglobin 14.4 g/dL (13.5-17.5); IMMATURE GRAN ABSOLUTE AUTO 0.19 K/mm3 (0.00-0.10); IMMATURE GRAN PERCENT AUTO 1 % (0-1); LYMPHOCYTES ABSOLUTE AUTO 0.21 K/mm3 (0.84-5.20); LYMPHOCYTES PERCENT AUTO 1 % (21-46); MONOCYTES ABSOLUTE AUTO 1.35 K/mm3 (0.16-1.47); MONOCYTES PERCENT AUTO 8 % (4-13); Mean Corpuscular HGB 32.7 pg (26.0-34.0); Mean Corpuscular HGB Conc 35.2 g/dL (31.5-36.5); Mean Corpuscular Volume 93 fL (80-100); Mean Platelet Volume 9.1 fL (9.1-12.4); NEUTROPHILS ABSOLUTE AUTO 15.06 K/mm3 (1.96-9.15); NEUTROPHILS PERCENT AUTO 90 % (41-73); Platelet Count 266 K/mm3 (150-400); RDW Coefficient Variation 13.2 % (11.7-14.2); RDW Standard Deviation 45.5 fL (35.1-46.3); White Blood Cell Count 16.84 K/mm3 (4.00-11.30)
[2019-03-07 03:35] LABS: Anion Gap 5 mmol/L (6-16); Blood Urea Nitrogen 37 mg/dL (8-24); Bun/Creatinine Ratio 63.4 (12.0-20.0); CO2, Blood 27 mmol/L (21-32); Chloride, Blood 102 mmol/L (98-108); Creatinine, Blood 0.58 mg/dL (0.60-1.20); Glomerular Filtration Rate >60 (60-); Glucose, Blood 173 mg/dL (70-99); Potassium, Blood 4.2 mmol/L (3.5-5.5); Sodium, Blood 134 mmol/L (136-145)
--- NOTE | 2019-03-07 06:11 | NUR ---
Shift Summary: Patient slept on/of throughout shift. Denies dyspnea/SOB, O2-90-94% on 3-5L/NC, VSS. Phenylephrine gtt titrated down from 100mcg/min to stand-by by 2100hr, and remained off for remainder of shift. Denies pain/discomfort until late this shift when he c/o rt hip pain, x1 prn oxycodone given with good effect noted. Medi-port to rt upper chest remains patent and intact, infusing without difficulty. Power-glide to JEN remains patent and intact. Varma cath draining clear yellow urine. Good appetite this shift, consumed x3 cans of soup and one sandwich without difficulty. Call light in reach, makes needs known. Will continue to monitor until report to day shift RN.
--- NOTE | 2019-03-07 08:15 | NUR ---
INITIAL ASSESSMENT PATIENT WATCHING TV UPON ENTERING ROOM. PATIENT ALERT AND ORIENTED X 4, AFEBRILE. PATIENT HAS NO COMPLAINTS OF PAIN AT THIS TIME. R EYE CLOUDY AND BLIND. PATIENT ABLE TO MOVE ALL EXTREMITIES. LIMITATIONS TO R HIP AND LEG HAD R HIP TORIBIO YESTERDAY. PATIENT SATTING 90% AND GREATER ON 3-4 L NC. RHONCHI NOTED T/O LUNG LOBES. LOWER LOBES DIMINISHED TO AUSCULTATION. PATIENT HAS OCCASIONAL MOIST COUGH. PATIENT IN A.FIB, HR LOW 100S TO 120S. BP STABLE. ANTIEMBOLISM STOCKINGS IN PLACE. GI WNL. ANDERSON IN PLACE, DRAINING, YELLOW, FOUL SMELLING URINE WITH SEDIMENT NOTED. AQUACEL DRESSING TO R HIP C/D/I. D5W 1/2 NS KCL 20 INFUSING AT 80 MLS/ HOUR. BED LOW, CALL LIGHT IN REACH. WILL CONTINUE TO MONITOR PATIENT FREQUENTLY THROUGHOUT SHIFT.
--- NOTE | 2019-03-07 11:16 | NUR ---
PATIENT WALKED IN ROOM WITH PHYSICAL THERAPY.
--- NOTE | 2019-03-07 12:12 | NUR ---
PATIENT RESTING QUIETLY IN BED. VITAL SIGNS STABLE. NO COMPLAINTS OF PAIN. NO ACUTE CHANGES TO NOTE ON AT THIS TIME. WILL CONTINUE TO MONITOR.
--- NOTE | 2019-03-07 12:46 | NUR ---
REPORT GIVEN TO ASSUMING SURGICAL FLOOR NURSE. PATIENT WILL BE GOING TO ROOM 214.
--- NOTE | 2019-03-07 13:30 | NUR ---
PATIENT TRANSFERRED TO SURGICAL ROOM, 214.
--- NOTE | 2019-03-07 13:33 | NUR ---
TRANSFER TO ROOM 214. PT A&OX4, VSS, POD1 R TORIBIO HIP, AQUACEL CDI, ANDERSON PATENT & DRAINING YELLOW URINE, STAT LOCK ON, OFF FLOOR, TEDS/SCDS, DENIES N&V, LINDA PO.
--- NOTE | 2019-03-07 16:54 | NUR ---
SHIFT SUMMARY PT A&OX4, VSS, POD1 R TORIBIO HIP, AQUACEL CDI, PAIN MANAGED WITH 5-10 MG OXY PRN. LINDA PO, DENIES N&V. MOD ASSIST STAND/PIVOT W/FWW & GB TO BSC. BM TODAY. ANDERSON PATENT & DRAINING YELLOW URINE, STAT LOCK ON, OFF FLOOR. WCTM & TX PER EMAR UNTIL REPORT GIVEN TO ONCOMING JM WEBB.
[2019-03-08 05:30] LABS: BASOPHILS ABSOLUTE AUTO 0.02 K/mm3 (0.00-0.23); BASOPHILS PERCENT AUTO 0 % (0-2); EOSINOPHILS ABSOLUTE AUTO 0.01 K/mm3 (0.00-0.68); EOSINOPHILS PERCENT AUTO 0 % (0-6); Hematocrit 43.8 % (37.0-53.0); Hemoglobin 14.9 g/dL (13.5-17.5); IMMATURE GRAN ABSOLUTE AUTO 0.19 K/mm3 (0.00-0.10); IMMATURE GRAN PERCENT AUTO 1 % (0-1); LYMPHOCYTES ABSOLUTE AUTO 0.46 K/mm3 (0.84-5.20); LYMPHOCYTES PERCENT AUTO 3 % (21-46); MONOCYTES PERCENT AUTO 8 % (4-13); Mean Corpuscular HGB 32.5 pg (26.0-34.0); Mean Corpuscular Volume 95 fL (80-100); NEUTROPHILS ABSOLUTE AUTO 14.42 K/mm3 (1.96-9.15); NEUTROPHILS PERCENT AUTO 88 % (41-73); RDW Coefficient Variation 13.4 % (11.7-14.2); RDW Standard Deviation 47.5 fL (35.1-46.3); Red Blood Cell Count 4.59 M/mm3 (4.30-5.90)
[2019-03-08 05:32] LABS: Mean Platelet Volume 9.8 fL (9.1-12.4); Platelet Count 226 K/mm3 (150-400)
[2019-03-08 05:48] LABS: Anion Gap 5 mmol/L (6-16); Blood Urea Nitrogen 30 mg/dL (8-24); Bun/Creatinine Ratio 50.8 (12.0-20.0); CO2, Blood 30 mmol/L (21-32); Calcium, Blood 8.1 mg/dL (8.5-10.1); Chloride, Blood 104 mmol/L (98-108); Creatinine, Blood 0.59 mg/dL (0.60-1.20); Glomerular Filtration Rate >60 (60-); Glucose, Blood 108 mg/dL (70-99); Potassium, Blood 4.8 mmol/L (3.5-5.5); Sodium, Blood 139 mmol/L (136-145)
--- NOTE | 2019-03-08 06:14 | NUR ---
SHIFT SUMMARY PT A&O X4 T/O SHIFT. POD#2 R HIP TORIBIO-ARTHROPLASTY. DRESSING CDI. PAIN MANAGED PER EMAR. PT DENIES NUMBNESS TO EXT, SOB, CP AND NAUSEA T/O SHIFT. O2 VIA NC; CONT. OX IN PLACE. SCD'S AND SOUMYA'S TO BLE'S. CALL LIGHT IN REACH; PT DEMONSTRATES USE. WCTM UNTIL REPORT TO DAY SHIFT RN.
--- NOTE | 2019-03-08 09:04 | NUR ---
PHYSICAL THERAPY WORKING WITH PT AT THIS TIME.
--- NOTE | 2019-03-08 15:08 | NUR ---
SHIFT SUMMARY PT WAS UP TO CHAIR TODAY. PT SEEN BY THERAPY TODAY. PT TOLERATING FOOD AND FLUIDS WELL. ANDERSON IN PLACE, SECURED, AND PATENT. PT HAS BEEN USING O2 VIA NC. DRESSING ON SURGICAL SITE IS C/D/I. PT HAD VISITORS TODAY.
--- NOTE | 2019-03-08 16:15 | NUR ---
Clinical Visit: Pt is asleep upon arrival to the room. Nurse, Marisol, wakes pt up and sits him up in bed. He is initially disoriented, but reorients quickly. Pt denies pain, denies anxiety. He eats some dessert that was on his overbed table and states he wants to watch TV. No concerns at this time. Pt is not interested in conversation. States he lives with his 's family. Will follow up as needed. It would be most effective to meet with pt and his family for advanced care planning.
--- NOTE | 2019-03-09 05:44 | NUR ---
no complaints of pain, awake and moving about in bed. no acute changes. Varma cath draining clear yellow urine. patient is appropriate with calls and uses call light.
--- NOTE | 2019-03-09 18:38 | NUR ---
SHIFT SUMMARY PAIN HAS BEEN MINIMAL EXCEPT FOR HEADACHE WHICH PT HAD TYLENOL FOR. PT IS A 1 ASSIST WHEN OOB. PT ENCOURAGED TO SIT UP TO THE CHAIR FOR MEALS, SAT TO THE CHAIR X1 TODAY. PT DECLINED FURTHER OFFERS TO ASSIST HIM TO THE CHAIR. PLAN FOR SNF TOMORROW. VSS. WILL MONITOR UNTIL REPORT TO ONCOMING RN.
--- NOTE | 2019-03-10 07:18 | NUR ---
SUMMARY: POD 4 RIGHT HIP FX REPAIR BY DR. MEYERS. VSS, AFEBRILE, TOLERATING PO INTAKE. PAIN WELL CONTROLLED WITH TYLENOL AND MEDICATED X1 WITH 5MG ROXICODONE FOR HEADACHE. PT/OT THIS DAY AND ANTICIPATE SNF TRANSFER LATER TODAY.
--- NOTE | 2019-03-10 15:50 | NUR ---
SHIFT SUMMARY POD4 R-HIP FX REPAIR. PT AOX4. A-FIB DURING DAY PER DAIRY SUPPLIES SALES REPRESENTATIVE. PT REPOSITIONING SELF IN BED. UP TO CHAIR WITH PT/OT. MEDICATED FOR PAIN X1 PRN PO TYLENOL @ 0830. PAIN MANAGED PER PATIENT STATEMENTS. PLAN TO DISCHARGE TO SNF TODAY, AWAITING FINAL DISCHARGE ORDERS.
--- NOTE | 2019-03-10 18:21 | NUR ---
DISCHARGE CALLED REPORT TO [facility]. DAVID PRYOR DEACCESSED. DISCHARGE INSTRUCTIONS AND SCRIPTS IN PACKET TO BE SENT WITH PATIENT. PATIENT MEDICATED FOR PAIN 5MG OXYCODONE.
--- NOTE | 2019-03-10 18:40 | NUR ---
PT LEFT VIA WHEELCHAIR. SCRIPT AND DRESSINGS SENT WITH DISCHARGE PACKET WITH RADIOACTIVITY TECHNICIAN.
--- NOTE | 2019-03-11 13:01 | NUR ---
03/11/19 1301 Bob Sarkar CHARTING CORRECTIONS
== END 2019-03-10 18:46 | DRG 469 ==
LOC: ER 12:22 → ICUE 16:35 → SURS 16:35 → PCU 16:35 → ICUE 17:24 → SURS 17:37 → ICUE 02-26 09:06 → PCU 02-28 16:20 → ICUW 03-06 14:25 → SURS 03-07 13:08
PROVIDERS: Anesthesiology; Emergency Medicine; Internal Medicine; Internal Medicine Critical Care Medicine; Orthopaedic Surgery; ADMIT Hospitalist
PROC: 3E033XZ Introduction of Vasopressor into Peripheral Vein, Percutaneous Approach (ICD-10-PCS; 2019-02-26)
PROC: 0SRR0JZ Replacement of Right Hip Joint, Femoral Surface with Synthetic Substitute, Open Approach (ICD-10-PCS; principal; 2019-03-06 12:00)
DX: S72.091A Other fracture of head and neck of right femur, initial encounter for closed fracture (principal); J18.9 Pneumonia, unspecified organism; J96.01 Acute respiratory failure with hypoxia; J44.0 Chronic obstructive pulmonary disease with (acute) lower respiratory infection; W19.XXXA Unspecified fall, initial encounter; I48.91 Unspecified atrial fibrillation; N40.1 Benign prostatic hyperplasia with lower urinary tract symptoms; Z66 Do not resuscitate; I48.2 Chronic atrial fibrillation; E78.5 Hyperlipidemia, unspecified; F17.210 Nicotine dependence, cigarettes, uncomplicated; Z85.118 Personal history of other malignant neoplasm of bronchus and lung; Z99.81 Dependence on supplemental oxygen
CPT/HCPCS: 32555; 36415; 36600; 51702; 71045; 71046; 71260; 73502; 73552; 80048; 80053; 80069; 81003; 82803; 83735; 84100; 84157; 85025; 85610; 85730; 86850; 86900; 86901; 87070; 87205; 88108; 88305; 88311; 88341; 88342; 89051; 93005; 93010; 93306; 94640; 94667; 94760; 94762; 96374; 97110; 97116; 97163; 97164; 97166; 97168; 97530; 97535; 99285-25; A9270; C1751; C1776; J0171; J0456; J0690; J0696; J0735; J1100; J1170; J1642; J1650; J1885; J1940; J2250; J2310; J2370; J2704; J2795; J2920; J2930; J3010; J3480; J7030; J7040; J7050; J7120; Q9967

== ENCOUNTER 2019-05-13 11:53 | Emergency (ER) | payer OTHER ==
[~2019-05-13] VITALS: Ht 188 cm; Wt 75.3 kg
[~2019-05-13 11:53] MED LIST changes: +ALBU2.5V5 INH; +ALBU90OI INH; -ALBU90OI61 INH; +Anti-Diarrheal2 MG PO; +BREO ELLIPTA 11 EACH INH; +DILTIAZEM 24HR360 M2 PO; +ESCI20 PO; +GABA100 PO; +Lopressor 50 mg50 MG PO
[2019-05-13] MEDS ORDERED: Percocet 5-3251 EACH PO (12:55)
== END 2019-05-13 13:15 | disposition home or self-care (01) ==
LOC: ER 11:53
DX: M54.6 Pain in thoracic spine (principal); C34.90 Malignant neoplasm of unspecified part of unspecified bronchus or lung; Z88.8 Allergy status to other drugs, medicaments and biological substances; Z79.899 Other long term (current) drug therapy; Z79.891 Long term (current) use of opiate analgesic; I48.91 Unspecified atrial fibrillation; J44.9 Chronic obstructive pulmonary disease, unspecified; I10 Essential (primary) hypertension; E78.5 Hyperlipidemia, unspecified; Z86.73 Personal history of transient ischemic attack (TIA), and cerebral infarction without residual deficits; K21.9 Gastro-esophageal reflux disease without esophagitis; F43.10 Post-traumatic stress disorder, unspecified; F41.9 Anxiety disorder, unspecified; F17.200 Nicotine dependence, unspecified, uncomplicated
CPT/HCPCS: 96372; 99283-25; J1170

== ENCOUNTER 2019-05-24 15:16 | Inpatient (IN) | payer OTHER ==
[~2019-05-24] VITALS: Ht 188 cm; Wt 72.4 kg
[~2019-05-24 15:16] MED LIST changes: -ALBU2.5V5 INH; +Percocet 5-3251 EACH PO
[2019-05-24 16:50] LABS: BASOPHILS ABSOLUTE AUTO 0.05 K/mm3 (0.00-0.23); BASOPHILS PERCENT AUTO 1 % (0-2); EOSINOPHILS ABSOLUTE AUTO 0.16 K/mm3 (0.00-0.68); EOSINOPHILS PERCENT AUTO 2 % (0-6); Hematocrit 42.1 % (37.0-53.0); Hemoglobin 13.4 g/dL (13.5-17.5); IMMATURE GRAN ABSOLUTE AUTO 0.03 K/mm3 (0.00-0.10); IMMATURE GRAN PERCENT AUTO 0 % (0-1); LYMPHOCYTES ABSOLUTE AUTO 0.95 K/mm3 (0.84-5.20); LYMPHOCYTES PERCENT AUTO 12 % (21-46); MONOCYTES ABSOLUTE AUTO 1.02 K/mm3 (0.16-1.47); MONOCYTES PERCENT AUTO 13 % (4-13); Mean Corpuscular HGB 31.8 pg (26.0-34.0); Mean Corpuscular HGB Conc 31.8 g/dL (31.5-36.5); Mean Corpuscular Volume 100 fL (80-100); Mean Platelet Volume 9.2 fL (9.1-12.4); NEUTROPHILS ABSOLUTE AUTO 5.69 K/mm3 (1.96-9.15); NEUTROPHILS PERCENT AUTO 72 % (41-73); Platelet Count 347 K/mm3 (150-400); RDW Coefficient Variation 14.4 % (11.7-14.2); RDW Standard Deviation 52.8 fL (35.1-46.3); Red Blood Cell Count 4.21 M/mm3 (4.30-5.90)
[2019-05-24 17:10] LABS: Alanine Aminotransfer (ALT/SGP 13 U/L (12-78); Albumin, Blood 1.9 g/dL (3.4-5.0); Albumin/Globulin Ratio 0.7 (0.8-1.8); Alk Phos 86 U/L (50-136); Anion Gap 5 mmol/L (6-16); Aspartate Aminotrans (AST/SGOT 11 U/L (12-37); Bilirubin, Total 0.2 mg/dL (0.1-1.0); Blood Urea Nitrogen 14 mg/dL (8-24); Bun/Creatinine Ratio 31.1 (12.0-20.0); CO2, Blood 22 mmol/L (21-32); Calcium, Blood 6.3 mg/dL (8.5-10.1); Chloride, Blood 119 mmol/L (98-108); Creatinine, Blood 0.45 mg/dL (0.60-1.20); Globulin, Blood 2.7 g/dL (2.2-4.0); Glomerular Filtration Rate >60 (60-); Glucose, Blood 66 mg/dL (70-99); Potassium, Blood 2.6 mmol/L (3.5-5.5); Sodium, Blood 146 mmol/L (136-145); Total Protein, Blood 4.6 g/dL (6.4-8.2); Troponin I 0.017 ng/mL (0.000-0.040)
[2019-05-25 04:12] LABS: International Normalized Ratio 0.98; Prothrombin Time Results 10.4 Sec (9.7-11.5)
[2019-05-25 04:18] LABS: Anion Gap 7 mmol/L (6-16); Blood Urea Nitrogen 21 mg/dL (8-24); Bun/Creatinine Ratio 28.4 (12.0-20.0); CO2, Blood 26 mmol/L (21-32); Chloride, Blood 109 mmol/L (98-108); Creatinine, Blood 0.74 mg/dL (0.60-1.20); Glomerular Filtration Rate >60 (60-); Glucose, Blood 86 mg/dL (70-99); Sodium, Blood 142 mmol/L (136-145)
[2019-05-25 04:19] LABS: Calcium, Blood 8.6 mg/dL (8.5-10.1); Potassium, Blood 4.6 mmol/L (3.5-5.5)
--- NOTE | 2019-05-25 05:28 | NUR ---
END OF SHIFT SUMMARY PT TO UNIT FROM ED. AXO BUT MUMBLES A LOT. PORT ACCESSED, INFUSING. IT WAS NOTED THAT EXTRA KCL IV WAS ORDERED ON TOP OF ADMITTING PHYSICIAN ORDERS, THIS WAS MITIGATED IN EMAR. PT IN AFIB 130'S UPON ADMIT, METOPROLOL GIVEN AND HASN REMAINED 100'S. PT'S LUNG SOUNDS COARSE T/O, SOME WHEEZING UPPER LOBES, AND DIM ON L LOBE. PT ON BASELINE 3LNC, SPO2 >92%. PT USING URINAL. USES CALL LIGHT APPROPRIATELY. 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 DESPUITE PT BEING IN HOSPITAL WITHIN LAST 6 MONTHS, DECISION MADE WITH AGRICULTURAL PRODUCE COMMISSION AGENT TO NOT PLACE HIM IN ISOP DUE TO THE MULTIPLE CLEARINGS. WILL DISCUSS THIS WITH ONCOMING RN. PT HAS REQUIRED SOME PAIN MEDICATION FOR POSTERIOR LEFT CHEST PAIN. ADMISSION ASSESMENT COMPLETE. PT ORIENTED TO ROOM. WILL CONTINUE TO MONITOR UNTIL SHIFT CHANGE.
--- NOTE | 2019-05-25 15:11 | NUR ---
PT STABLE FOR TRANSFER TO MEDICAL FLOOR. REPORT CALLED TO TONNY WEBB ON MEDICAL FLOOR. PT HEADING TO ULTRASOUND FOR THORACENTESIS AND THEN WILL TRANSFER TO MEDICAL FLOOR AFTER PROCEDURE. PT'S BELONGINGS TAKEN UP TO 3RD FLOOR.
--- NOTE | 2019-05-25 16:18 | NUR ---
PT ARRIVED TO THE UNIT VIA WHEEL CHAIR. PT ORIENTED TO ROOM. PT HAS NO COMPLAINTS AT THIS TIME. BREATH SOUNDS ARE COARSE
--- NOTE | 2019-05-25 22:47 | NUR ---
spoke to Steph rosenbaum NP regarding patient telemetry reports patient has been in AFIB all day today and maintaining HR in the 120s. requested telemtry to send strips throughout the time patient on telemetry to place in file.
[2019-05-26 05:25] LABS: Anion Gap 7 mmol/L (6-16); Blood Urea Nitrogen 17 mg/dL (8-24); Bun/Creatinine Ratio 24.3 (12.0-20.0); CO2, Blood 25 mmol/L (21-32); Calcium, Blood 8.4 mg/dL (8.5-10.1); Chloride, Blood 110 mmol/L (98-108); Glomerular Filtration Rate >60 (60-); Glucose, Blood 89 mg/dL (70-99); Potassium, Blood 3.7 mmol/L (3.5-5.5); Sodium, Blood 142 mmol/L (136-145)
--- NOTE | 2019-05-26 08:00 | NUR ---
PT. HAS AN IMPLANTED MEDIPORT IN THEIR RUCW. MEDIPORT HAS NOT BEEN ACCESSED.
[2019-05-26] MEDS ORDERED: ESCI20 PO (11:23)
[2019-05-26] MEDS ORDERED: Flonase 0.05% N16 GM (11:24)
[2019-05-26] MEDS ORDERED: FLUTICASONE-SA1 EAC1 INH (11:25)
[2019-05-26] MEDS ORDERED: GABA100 PO (11:25)
[2019-05-26] MEDS ORDERED: THERA1 EACH PO (11:25)
[2019-05-26] MEDS ORDERED: NICO21TP TOP (11:26)
[2019-05-26] MEDS ORDERED: TOPROL XL50 MG PO (11:28)
--- NOTE | 2019-05-26 12:30 | NUR ---
PT. IV IN LUFA DC'D WNL. IV WAS NOT DOCUMENTED WHEN PLACED. 20 GAUGE IN LEFT UA.
--- NOTE | 2019-05-26 12:50 | NUR ---
PT. DISCHARGED WITH FAMILY TO GO TO [facility]. 1500 ML REMOVED VIA THORACENTESIS YESTERDAY.MEDS FAXED TO ALEJANDRA STOVER AND PT. VERBALIZED UNDERSTANDING OF DISCHARGE ORDERS.
[2019-06-05] MEDS ORDERED: OXYC5 PO (15:01)
[2019-06-05] MEDS ORDERED: TRAM50 PO (15:03)
[2019-06-07] MEDS ORDERED: MORP20L PO (11:03)
== END 2019-05-26 13:05 | disposition home or self-care (01) | DRG 189 ==
LOC: ER 15:16 → PCU 15:17 → MEDS 05-25 16:16 → ENPENDDIS 05-26 11:09 → MEDS 05-26 13:05
PROVIDERS: Physician Assistant; ADMIT Internal Medicine
PROC: 0W9B3ZZ Drainage of Left Pleural Cavity, Percutaneous Approach (ICD-10-PCS; principal; 2019-05-25)
DX: J96.21 Acute and chronic respiratory failure with hypoxia (principal); J91.0 Malignant pleural effusion; C34.90 Malignant neoplasm of unspecified part of unspecified bronchus or lung; I48.20 Chronic atrial fibrillation, unspecified; J44.9 Chronic obstructive pulmonary disease, unspecified; G47.33 Obstructive sleep apnea (adult) (pediatric); E87.6 Hypokalemia; I10 Essential (primary) hypertension; E78.5 Hyperlipidemia, unspecified; K21.9 Gastro-esophageal reflux disease without esophagitis; F43.10 Post-traumatic stress disorder, unspecified; F41.9 Anxiety disorder, unspecified; E83.42 Hypomagnesemia; Z66 Do not resuscitate; Z99.81 Dependence on supplemental oxygen; Z86.73 Personal history of transient ischemic attack (TIA), and cerebral infarction without residual deficits; Z87.891 Personal history of nicotine dependence; Z79.51 Long term (current) use of inhaled steroids; Z79.899 Other long term (current) drug therapy
CPT/HCPCS: 32555; 36415; 71045; 71046; 80048; 80053; 83735; 83880; 84484; 85025; 85610; 90686; 93005; 93010; 94640; 94760; 96361; 96365; 96367; 96375; 96376; 99285-25; G0008; G0378; J1170; J1642; J3010; J3475; J3480; J7050

== ENCOUNTER 2019-06-03 09:35 | Day surgery (SDC) | payer OTHER ==
[~2019-06-03 09:35] MED LIST changes: +FLUTICASONE-SA1 EAC1 INH; +NICO21TP TOP; +THERA1 EACH PO; +TOPROL XL50 MG PO
--- NOTE | 2019-06-03 10:36 | NUR ---
History, Chart, Medications and Allergies reviewed before start of procedure. LS WITH INSP/EXP WHEEZES T/O. DIMINISHED ON LEFT SIDE. PT SOB AT REST WORSE WITH POSITION CHANGES. PT WEARING O2 AT 2L, INCREASED TO 3L NC. PT NEEDING SIGNIFICANT ASSISTANCE TO CHANGE INTO GOWN. Patient confirms NPO status and agrees with scheduled surgery. Pre-Op teaching done. Pt verbalizes understanding. PT REPORTS TAKING SHOWERS AT HOME BUT PRESENTS WITH EKG STICKER TO LEFT CHEST.
--- NOTE | 2019-06-03 11:32 | NUR ---
INTO STEP VIA GURNEY. STATUS POST PLEURX CATHETER PLACEMENT TO LEFT CHEST. DRESSING C/D/I. PT DROWSY, BUT AWAKENS TO VERBAL-PT MOANING. ORTHOPNEA NOTED. INCREASED WOB NOTED. LUNGS COARSE T/O RIGHT AND VERY TIGHT AND DIMINISHED ON THE LEFT. O2 SATS 85% ON 2 LITERS NASAL CANULA. TITRATED UP TO 4 LITERS AND SATS 88%. ECG SHOWS AF WITH RVR-RATE 140-160'S. SBP TRENDING 110'S. PT DID NOT TAKE HIS METOPROLOL THIS AM. PALLIATIVE CARE CONSULTED.
--- NOTE | 2019-06-03 11:45 | NUR ---
Visited pt in the daysurgery area. Soha reports pt came in for a pleurX placement and is now in afib with RVR and plan is for pt to possibly go home on hospice care. Reviewed old chart notes from previous visit. No CM or discharge summary notes mention hospice as an option. Pt is a current pt of [facility]. Spoke with Rishi at [facility] and he reports that Dr. Tapia, pt's PCP, ordered the services back in March. is scheduled to make a visit to pt's home on Saturday06/05/19. Will attempt to contact pt's dtr, Shannan, to find out more information and help come up with a plan of care.
--- NOTE | 2019-06-03 12:01 | NUR ---
PT MED WITH FENTANYL 25 MCG IVP X1 GIVEN FOR PAIN. ZOFRAN 4 MG IVP X1 GIVEN FOR NAUSEA, AND METOPROLOL 25 MG PO X 1 GIVEN.
--- NOTE | 2019-06-03 12:05 | NUR ---
PALLIATIVE CARE RN, BRIAN CONTACTING [facility] TO [facility].
--- NOTE | 2019-06-03 12:45 | NUR ---
Spoke with pt who is still sleepy from surgery to place pleurX. He states he doesn't know anything about hospice. Spoke with pt's dtr, Shannan, in waiting room. Shannan states that she is hopeful that her dad will agree to hospice services. Currently he receives HH and she has seen a decline in his condition recently. She would like to talk to her dad over the next couple of days and pursue hospice services if he agrees. She reports she has had pleurX drain teaching, has the starter supplies at home, has watched the video and feels confident that she will be able to manage his pleurX drain. She states she will plan to take him home today and will talk with [facility] nurse on Saturday is they decide to transition to hospice care. Spoke with Rishi at [facility] to update him that pt will continue HH services at this time but may change to hospice. Also spoke with staff at Dr. Tapia's office to let him know that pt and family are considering transitioning to hospice care. Updated Shannan that and MD had been contacted. She was grateful and states she knows that she can contact between now and Saturday if she needs anything.
--- NOTE | 2019-06-03 13:26 | NUR ---
RECEIVED REPORT AND ASSUMED CARE OF PATIENT FROM PADMINI Geiger RN. PT READY TO GO HOME EXCEPT FOR CALL REGARDING CXR. NO SIGN OR SX OF DISTRESS NOTED, NO C/O AT THIS TIME.
--- NOTE | 2019-06-03 14:19 | NUR ---
CXR CONFIRMED BY RADIOLOGIST.DISCHARGE INSTRUCTIONS REVIEWED WITH PT DAUGHTER,LILIYA. PT DAUGHTER VERBALIZES AND DEMONSTRATES UNDERSTANDING OF DISCHARGE INSTRUCTIONS. DISCHARGED VIA WHEELCHAIR-PT DAUGHTERLILIYA HAS DISCHARGE INSTRUCTIONS.
[2019-06-05] MEDS ORDERED: OXYC5 PO (15:01)
[2019-06-05] MEDS ORDERED: TRAM50 PO (15:03)
[2019-06-07] MEDS ORDERED: MORP20L PO (11:03)
== END 2019-06-03 14:20 | disposition home or self-care (01) ==
LOC: ORSCMMR 09:35 → ORD 11:00 → ORSCMMR 14:20
PROVIDERS: Surgery
PROC: 0W9B30Z Drainage of Left Pleural Cavity with Drainage Device, Percutaneous Approach (ICD-10-PCS; principal; 2019-06-03 11:00)
DX: C78.00 Secondary malignant neoplasm of unspecified lung (principal); J91.0 Malignant pleural effusion; F17.210 Nicotine dependence, cigarettes, uncomplicated; J44.9 Chronic obstructive pulmonary disease, unspecified; I48.91 Unspecified atrial fibrillation; Z79.01 Long term (current) use of anticoagulants; B19.20 Unspecified viral hepatitis C without hepatic coma; Z79.899 Other long term (current) drug therapy; Z86.73 Personal history of transient ischemic attack (TIA), and cerebral infarction without residual deficits; E78.00 Pure hypercholesterolemia, unspecified
CPT/HCPCS: 71045; C1729; J0690; J2250; J2405; J2704; J3010; J7120